=== PATIENT | female | born 1985 | race African-American/Black ===

== ENCOUNTER 2016-09-02 08:27 | Emergency (ER) | payer MEDICAID ==
[~2016-09-02] VITALS: Ht 165.1 cm; Wt 51.0 kg
[~2016-09-02 08:27] MED LIST: CONTOUR NEXT EZ BLEZ XX; GLUCOMETER XX; GLUCOMTESTSTRIPS XX; LEVEMIR SC; NOVOLOGP2 SQ; NYST500KS SS; Z.0.INSULINSYR XX
[2016-09-02 08:28] VITALS: BP 140/82; PULSE 98; RESP 20; TEMP 98.6; O2SAT 98
--- NOTE | 2016-09-02 08:53 | PD ---
HPI . Shaky and jittery feeling intermittently Chief Complaint: Diabetic Time Seen by Provider: 08:53 Travel History International Travel<30 days: No Contact w/Intl Traveler<30days: No Traveled to known affect area: No History of Present Illness HPI 30-year-old female with history of type 1 diabetes here with complaints of feeling shaky and jittery occasionally. Patient tells me that yesterday she had a shaky and jittery feeling. Unfortunately she does not have a glucometer and she tells me that she was unable to check her blood sugar. She does take insulin daily. She recently missed a primary care follow-up and says that she did not have a ride. She is in the process of looking for someone a little bit closer to home. Today she denies any fever, chills, shaking, lightheadedness or abnormal sensation. PFSH Past Medical History Autoimmune Disease: No Blood Disorders: No Cardiovascular Problems: Yes ("RAPID HEART RATE") Diabetes: Yes Diminished Hearing: No Endocrine: No Genitourinary: No Immune Disorder: No Musculoskeletal: No Neurologic: No Reproductive: No Respiratory: No ?: Not LMP: LAST MONTH : 5 Para: 4 Miscarriage: 1 : 0 Tubal Ligation: Yes Social History Alcohol Use: No Tobacco Use: No Substance Use: No Allergies-Medications (Allergen,Severity, Reaction): Coded Allergies: No Known Allergies (Verified , 09/02/16) Reported Meds & Prescriptions Reported Meds & Active Scripts Active Novolog (Insulin Aspart) 100 Units/ML Inj 30 Units SQ AM Levemir (Insulin Detemir) Inj 10 Units SC AM Contour Next EZ Blood Glucose Meter (Device) Device 1 Unit XX DIRECTED Insulin Syringes 1 ml Box 100 (Syringes Insulin 1 ml Box 100) Box 1 Box XX Glucometer Test Strips (Glucomteststrips) Box 1 Box XX Glucometer Kit 1 Kit XX Mycostatin 500,000 Unit/5 Ml Udc (Nystatin) 5 Ml Susp 5 Ml SS QID 12 Days Reported Novolog (Insulin Aspart) 100 Units/ML Inj 30 Units SQ HS Review of Systems General / Constitutional: No: Fever Eyes: No: Visual changes HENT: No: Headaches Cardiovascular: No: Chest Pain or Discomfort Respiratory: No: Shortness of Breath Gastrointestinal: No: Abdominal Pain Genitourinary: No: Dysuria Musculoskeletal: No: Pain Skin: No Rash Neurologic: No: Weakness Psychiatric: No: Depression Endocrine: No: Polydipsia Hematologic/Lymphatic: No: Easy Bruising Physical Exam Narrative GENERAL: AAO x 3, no acute distress, Well-nourished, well-developed patient. SKIN: Warm and dry. No visible rashes or bruising. HEAD: Normocephalic and atraumatic. EYES: No scleral icterus. No injection or drainage. EOM intact, PERRLA ENT: No nasal drainage noted. Mucous membranes pink. Airway patent. NECK: Supple, trachea midline. No JVD. CARDIOVASCULAR: Regular rate and rhythm without murmurs, gallops, or rubs. RESPIRATORY: Breath sounds equal bilaterally. No accessory muscle use. No rhonchi or rales. GASTROINTESTINAL: Abdomen soft, non-tender, nondistended. EXTREMITIES: No cyanosis or edema. BACK: Nontender without obvious deformity. No CVA tenderness. NEURO: CN II through XII grossly intact PSYCH: AAO x 3, normal affect. Data Data Last Documented VS Vital Signs Date Time Temp Pulse Resp B/P Pulse Ox O2 Delivery O2 Flow Rate FiO2 09/02/16 08:28 98.6 98 20 140/82 98 MDM Medical Decision Making Medical Screen Exam Complete: Yes Emergency Medical Condition: Yes Medical Record Reviewed: Yes Differential Diagnosis diabetes, anxiety, dehydration Narrative Course 30-year-old female here with complaints of shaking and jittery feeling yesterday. Today she does not have the same feeling. I've done a complete head to toe examination and do not find any explanation as to why she felt this way. It's more than likely that she may have had a period of hypoglycemia. Her blood sugar today is 99. She does take insulin daily. I've advised her that she will need to follow-up with her primary care provider for insulin adjustment and closer med monitoring. Patient verbalized understanding of instructions, questions were answered, and thanked me for their care. I advised them if their condition worsens, please return to the nearest emergency room for further care. Diagnosis Primary Impression: Diabetes type I Qualified Code: E10.9 - Type 1 diabetes mellitus without complication Patient Instructions: General Instructions Additional Instructions: Please follow-up with your primary care provider. Disposition: 01 DISCHARGE HOME Condition: Stable Naima Jacobs September 02, 2016 08:53
== END 2016-09-02 09:22 | disposition home or self-care (01) ==
LOC: NEPK 08:27
DX: E10.9 Type 1 diabetes mellitus without complications (principal); Z79.4 Long term (current) use of insulin
CPT/HCPCS: 99282

== ENCOUNTER 2016-12-02 08:51 | Inpatient (IN) | payer MEDICAID ==
[~2016-12-02] VITALS: Ht 165.1 cm; Wt 42.3 kg
[2016-12-02] VITALS (11 sets, daily range): BP systolic 105–184; BP diastolic 69–81; PULSE 68–105; RESP 16–18; TEMP 97.3–98.2; O2SAT 97–100
[2016-12-02] MEDS ORDERED: LEVEMIR SQ (09:35)
[2016-12-02] MEDS ORDERED: NOVORP2 SQ (09:35)
[2016-12-02] MEDS ORDERED: SODIUM CHLOR 0.9% 1000 ML INJ 1,000 ML IV ONE (09:45)
[2016-12-02] MEDS ORDERED: ONDANSETRON HCL 4 MG/2 ML VIAL IV PUSH ONE (09:45)
--- NOTE | 2016-12-02 09:47 | PD ---
HPI Chief Complaint: Diabetic Time Seen by Provider: 09:37 Travel History International Travel<30 days: No Contact w/Intl Traveler<30days: No Traveled to known affect area: No History of Present Illness HPI 30-year-old female complains of mild headache, shortness of breath, abdominal pain, nausea vomiting, dizziness. Patient states the symptoms started several days ago. Patient has history of diabetes and was on Levemir and Novolin R. Patient states that she ran out of Levemir several months ago and Novolin R a week ago. Patient denies any coughing congestion fever chills. Patient denies any dysuria or frequency. Patient denies any vaginal discharge or bleeding. PFSH Past Medical History Autoimmune Disease: No Blood Disorders: No Cardiovascular Problems: Yes ("RAPID HEART RATE") Diabetes: Yes Patient Takes Glucophage: No Diminished Hearing: No Endocrine: No Genitourinary: No Immune Disorder: No Musculoskeletal: No Neurologic: No Reproductive: No Respiratory: No Immunizations Current: No Tetanus Vaccination: < 5 Years Influenza Vaccination: No ?: Not LMP: last month : 5 Para: 4 Miscarriage: 1 : 0 Tubal Ligation: Yes Past Surgical History Other Surgery: No Social History Alcohol Use: No Tobacco Use: No Substance Use: No Allergies-Medications (Allergen,Severity, Reaction): Coded Allergies: No Known Allergies (Verified , 09/02/16) Reported Meds & Prescriptions Reported Meds & Active Scripts Active Reported Levemir Inj (Insulin Detemir) 1,000 unit/ 10 ML Vial 10 Units SQ HS Do not mix with any other Insulin. Novolin R Inj (Insulin Human Regular) 1,000 Unit/10 Ml Vial 10 Units SQ TIDAC Review of Systems General / Constitutional: No: Fever Eyes: No: Visual changes HENT: Positive: Headaches Cardiovascular: No: Chest Pain or Discomfort Respiratory: No: Shortness of Breath Gastrointestinal: Positive: Nausea, Vomiting, Abdominal Pain Genitourinary: No: Dysuria Musculoskeletal: No: Pain Skin: No Rash Neurologic: No: Weakness Psychiatric: No: Depression Endocrine: No: Polydipsia Hematologic/Lymphatic: No: Easy Bruising Physical Exam Narrative GENERAL: Well-nourished, well-developed patient. SKIN: Focused skin assessment warm/dry. HEAD: Normocephalic. EYES: No scleral icterus. No injection or drainage. NECK: Supple, trachea midline. No JVD or lymphadenopathy. CARDIOVASCULAR: Regular rate and rhythm without murmurs, gallops, or rubs. RESPIRATORY: Breath sounds equal bilaterally. No accessory muscle use. GASTROINTESTINAL: Abdomen soft, nondistended. Mild tenderness on palpation epigastric area. No rebound tenderness. No mass. MUSCULOSKELETAL: No cyanosis, or edema. BACK: Nontender without obvious deformity. No CVA tenderness. Neurologic exam normal. Data Data Last Documented VS Vital Signs Date Time Temp Pulse Resp B/P Pulse Ox O2 Delivery O2 Flow Rate FiO2 12/02/16 10:30 78 16 116/79 100 Room Air 12/02/16 09:28 98.2 Orders Complete Blood Count With Diff (12/02/16 09:41) Comprehensive Metabolic Panel (12/02/16 09:41) Urinalysis - C+S If Indicated (12/02/16 09:41) Beta Hydroxybutyrate (Acetone) (12/02/16 09:41) Iv Access Insert/Monitor (12/02/16 09:41) Ecg Monitoring (12/02/16 09:41) Oximetry (12/02/16 09:41) Sodium Chlor 0.9% 1000 Ml Inj (Ns 1000 M (12/02/16 09:45) Ondansetron Inj (Zofran Inj) (12/02/16 09:45) Lipase (12/02/16 09:41) Labs Laboratory Tests Test 12/02/16 12/02/16 09:25 09:30 Urine Color LIGHT-YELLOW Urine Turbidity CLEAR Urine pH 5.0 Urine Specific [place] 1.032 Urine Protein NEG mg/dL Urine Glucose (UA) 1000 mg/dL Urine Ketones 150 mg/dL Urine Occult Blood NEG Urine Nitrite NEG Urine Bilirubin NEG Urine Urobilinogen LESS THAN 2.0 MG/DL Urine Leukocyte Esterase MOD Urine RBC 2 /hpf Urine WBC 4 /hpf Urine Squamous Epithelial 1 /hpf Cells Microscopic Urinalysis Comment CULT NOT INDICATED White Blood Count 8.7 TH/MM3 Red Blood Count 4.70 MIL/MM3 Hemoglobin 15.2 GM/DL Hematocrit 47.0 % Mean Corpuscular Volume 100.0 FL Mean Corpuscular Hemoglobin 32.4 PG Mean Corpuscular Hemoglobin 32.4 % Concent Red Cell Distribution Width 13.5 % Platelet Count 370 TH/MM3 Mean Platelet Volume 8.8 FL Neutrophils (%) (Auto) 74.3 % Lymphocytes (%) (Auto) 18.4 % Monocytes (%) (Auto) 6.2 % Eosinophils (%) (Auto) 0.3 % Basophils (%) (Auto) 0.8 % Neutrophils # (Auto) 6.5 TH/MM3 Lymphocytes # (Auto) 1.6 TH/MM3 Monocytes # (Auto) 0.5 TH/MM3 Eosinophils # (Auto) 0.0 TH/MM3 Basophils # (Auto) 0.1 TH/MM3 CBC Comment DIFF FINAL Differential Comment Sodium Level 121 MEQ/L Potassium Level 3.7 MEQ/L Chloride Level 88 MEQ/L Carbon Dioxide Level 17.6 MEQ/L Anion Gap 15 MEQ/L Blood Urea Nitrogen 9 MG/DL Creatinine 1.34 MG/DL Estimat Glomerular Filtration 55 ML/MIN Rate Random Glucose 696 MG/DL Calcium Level 10.1 MG/DL Total Bilirubin 0.4 MG/DL Aspartate Amino Transf 16 U/L (AST/SGOT) Alanine Aminotransferase 23 U/L (ALT/SGPT) Alkaline Phosphatase 207 U/L Total Protein 9.8 GM/DL Albumin 4.5 GM/DL Lipase 93 U/L B-Hydroxybutyrate 5.35 MMOL/L MDM Medical Decision Making Medical Screen Exam Complete: Yes Emergency Medical Condition: Yes Interpretation(s) 11:49 AM. CBC within normal limit. Sodium 121. Bicarbonate 17.6. Creatinine 1.34. Glucose 696. Beta hydroxy butyrate 5.35. UA is positive for glucose and ketone. Differential Diagnosis Differential diagnosis including hyperglycemia, DKA, electrolyte imbalance, dehydration, gastritis, PUD, pancreatitis, cholecystitis, colitis, UTI, pyelonephritis. Narrative Course 30-year-old female with multiple complaints including headache, shortness of breath, abdominal pain, nausea vomiting. Patient has history diabetes and out of her insulin recently. Normal saline solution 1 L IV bolus. Zofran 4 mg IV. DKA protocol started. Diagnosis Primary Impression: DKA (diabetic ketoacidoses) Qualified Code: E10.10 - Diabetic ketoacidosis without coma associated with type 1 diabetes mellitus Admitting Information Admitting Physician Requests: Admit Grayson Cuadra MD Dec 02, 2016 09:47
[2016-12-02 10:12] LABS: AUTOMATED NEUTROPHIL # 6.5 TH/MM3 (1.8-7.7); BASOPHIL # 0.1 TH/MM3 (0-0.2); BASOPHIL % 0.8 % (0.0-2.0); EOSINOPHIL % 0.3 % (0.0-4.0); HEMO FLAGS DIFF FINAL; LYMPH % 18.4 % (9.0-44.0); LYMPHOCYTE # 1.6 TH/MM3 (1.0-4.8); MEAN CORPUSCULAR HEMOGLOBIN 32.4 PG (27.0-34.0); MEAN CORPUSCULAR HGB CONC 32.4 % (32.0-36.0); MONO % 6.2 % (0.0-8.0); NEUT % 74.3 % (16.0-70.0); PLATELET COUNT 370 TH/MM3 (150-450); RED CELL DISTRIBUTION WIDTH 13.5 % (11.6-17.2); WHITE BLOOD COUNT 8.7 TH/MM3 (4.0-11.0)
[2016-12-02 10:14] LABS: BLOOD, URINE NEG (NEG); COMMENT (UR) CULT NOT INDICATED; CULTURE IF INDICATED CULT NOT INDICATED; GLUCOSE,URINE 1000 mg/dL (NEG); KETONE, URINE 150 mg/dL (NEG); NITRITE,URINE NEG (NEG); SQUAMOUS EPITHELIAL CELL URINE 1 /hpf (0-5); URINE COLOR LIGHT-YELLOW (YELLW/STRAW)
[2016-12-02 10:33] LABS: ALKALINE PHOSPHATASE 207 U/L (45-117); ALT (GPT) 23 U/L (10-53); ANION GAP 15 MEQ/L (5-15); AST (GOT) 16 U/L (15-37); BICARBONATE 17.6 MEQ/L (21.0-32.0); BLOOD UREA NITROGEN 9 MG/DL (7-18); CHLORIDE 88 MEQ/L (98-107); GLOMERULAR FILTRATION RATE 55 ML/MIN (>89); POTASSIUM 3.7 MEQ/L (3.5-5.1); TOTAL BILIRUBIN ADULT 0.4 MG/DL (0.2-1.0)
[2016-12-02 10:36] LABS: BETA-HYDROXYBUTYRATE 5.35 MMOL/L (0.00-0.39)
[2016-12-02 10:41] LABS: SODIUM (NA) 121 MEQ/L (136-145)
[2016-12-02] MEDS ORDERED: SODIUM CHLOR 0.9% 1000 ML INJ 1,000 ML IV SCH (11:51)
[2016-12-02] MEDS ORDERED: DEXT 5%-NACL 0.9% 1000 ML INJ 1,000 ML IV SCH (11:51)
[2016-12-02] MEDS ORDERED: INSULIN HUMAN REGULAR 1,000 UNITS/10 ML VIAL IV PUSH ONE ×2 (12:00→23:45)
[2016-12-02] MEDS ORDERED: POTASSIUM CHLOR 20 MEQ PREMIX 100 ML IV PRN ×6 (12:00)
[2016-12-02] MEDS ORDERED: SODIUM BICARBONATE 8.4% SOLN 50 MEQ/50 ML VIAL IV PRN ×2 (12:00)
[2016-12-02] MEDS ORDERED: SODIUM PHOSPHATE INJ 15 MMOL in SODIUM CHLORIDE 0.9% INJ 100 ML IV PRN (12:00)
[2016-12-02] MEDS ORDERED: INSULIN REGULAR (IV INFUSION) 100 UNITS in SODIUM CHLORIDE 0.9% INJ 99 ML IV SCH (12:00)
[2016-12-02] MEDS ORDERED: POTASSIUM CHLOR 40 MEQ PREMIX 100 ML IV PRN ×2 (12:00)
[2016-12-02] MEDS ORDERED: NALOXONE HCL 0.4 MG/ML AMP IV PRN (12:45)
[2016-12-02] MEDS ORDERED: BISACODYL 10 MG SUPP RECTAL PRN (12:45)
[2016-12-02] MEDS ORDERED: MAGNESIUM HYDROXIDE SUSP 30 ML CUP PO PRN (12:45)
[2016-12-02] MEDS ORDERED: DEXTROSE 50% IN WATER 50 ML VIAL(D50) IV PRN (12:45)
[2016-12-02] MEDS ORDERED: ONDANSETRON HCL 4 MG/2 ML VIAL IVP PRN (12:45)
[2016-12-02] MEDS ORDERED: GLUCAGON 1 MG/ML VIAL OTHER PRN (12:45)
[2016-12-02] MEDS ORDERED: SENNOSIDES 8.6 MG TAB PO PRN (12:45)
[2016-12-02] MEDS ORDERED: SODIUM CHLORIDE 0.9% FLUSH 10 ML FLUSH IV FLUSH PRN (12:45)
[2016-12-02] MEDS ORDERED: LACTULOSE SYRUP 20 GM/30 ML CUP PO PRN (12:45)
[2016-12-02] MEDS ORDERED: ACETAMINOPHEN 325 MG TAB PO PRN (12:45)
--- NOTE | 2016-12-02 15:15 | HHI.HP ---
[facility] No Primary Care Physician Admission Diagnosis diabetic ketoacidosis Diagnoses: Chief Complaint: not feeling well Travel History International Travel<30 Days: No Contact w/Intl Traveler <30 Da: No Traveled to Known Affected Are: No History of Present Illness This is a 30-year-old female with history of type 1 diabetes who presented with "not feeling well." Patient stated that she came to ED because she did not feel well. She stated that she had mild abdominal pain earlier but that resolved. She also had episode of emesis described as clear that resolved. Patient also said that she had a headache. She stated that she knew it was her diabetes as she came into the hospital. Patient does have good urine output. She stated that she changed insurance over a month ago and she cannot find a provider that will take [employer]. She stated that she wants to keep her current provider but he does not take that type of insurance. She stated that for the past months she has not been taking her insulin. Prior she was on Novolin 70/30 40-50 at night and NovoLog 10 units before meals. She also stated that she feels dry/dehydrated. All other review symptoms reviewed and are negative. Past Family Social History Past Medical History Type 1 diabetes Noncompliance Past Surgical History Tubal ligation Reported Medications Currently patient is not taking any medication. Allergies: Coded Allergies: No Known Allergies (Verified , 09/02/16) Active Ordered Medications Current Medications Sodium Chloride (NS 1000 ml Inj) 1,000 ml @ 999 mls/hr BOLUS ONCE IV Last administered on 12/02/16 10:33; Start 12/02/16 at 09:45; Stop 12/02/16 at 10:45 ; Status DC Ondansetron HCl 4 mg 4 mg ONCE ONCE IV PUSH Last administered on 12/02/16 10: 34; Start 12/02/16 at 09:45; Stop 12/02/16 at 09:46; Status DC Sodium Chloride 1,000 ml @ 250 mls/hr Q4H IV Last administered on 12/02/16 11 :58; Start 12/02/16 at 11:51; Stop 12/02/16 at 13:57; Status DC Dextrose/Sodium Chloride (D5W-NS 1000 ml Inj) 1,000 ml @ 200 mls/hr Q5H IV Last administered on 12/02/16 13:48; Start 12/02/16 at 11:51; Stop 12/02/16 at 13:52; Status DC Insulin Human Regular 5 units 5 units BOLUS ONCE IV PUSH Last administered on 12/02/16 12:32; Start 12/02/16 at 12:00; Stop 12/02/16 at 12:01; Status DC Insulin Human Regular 100 units/ Sodium Chloride 100 ml @ 0 mls/hr TITRATE IV Last administered on 12/02/16 13:40; Start 12/02/16 at 12:00; Stop 12/02/16 at 13:54; Status DC Potassium Chloride 100 ml @ 100 mls/hr Q1H PRN IV SEE LABEL COMMENTS; Start at 12:00 Potassium Chloride 100 ml @ 50 mls/hr Q2H PRN IV SEE LABEL COMMENTS; Start at 12:00 Potassium Chloride 100 ml @ 100 mls/hr Q1H PRN IV SEE LABEL COMMENTS; Start at 12:00 Potassium Chloride 100 ml @ 100 mls/hr Q1H PRN IV SEE LABEL COMMENTS; Start at 12:00 Potassium Chloride 100 ml @ 50 mls/hr Q2H PRN IV SEE LABEL COMMENTS; Start at 12:00 Potassium Chloride 100 ml @ 50 mls/hr Q2H PRN IV SEE LABEL COMMENTS; Start at 12:00 Potassium Chloride 100 ml @ 50 mls/hr Q2H PRN IV SEE LABEL COMMENTS Last administered on 12/02/16 12:17; Start 12/02/16 at 12:00 Potassium Chloride (KCl 20 Meq Premix Inj) 100 ml @ 50 mls/hr Q2H PRN IV SEE LABEL COMMENTS; Start 12/02/16 at 12:00 Sodium Bicarbonate (Sodium Bicarbonate 8.4% Inj) 100 meq UNSCH PRN IV SEE LABEL COMMENTS; Start 12/02/16 at 12:00 Sodium Bicarbonate 50 meq 50 meq UNSCH PRN IV SEE LABEL COMMENTS; Start at 12:00 Sodium Phosphate 15 mmol/Sodium Chloride 105 ml @ 25 mls/hr UNSCH PRN IV SEE LABEL COMMENTS; Start 12/02/16 at 12:00 Sodium Chloride (NS 1000 ml Inj) 1,000 ml @ 150 mls/hr Q6H40M IV ; Start at 12:31 Sodium Chloride (NS Flush) 2 ml UNSCH PRN IV FLUSH FLUSH AFTER USING IV ACCESS ; Start 12/02/16 at 12:45 Sodium Chloride (NS Flush) 2 ml BID IV FLUSH ; Start 12/02/16 at 21:00 Acetaminophen (Tylenol) 650 mg Q4H PRN PO TEMP > 100.4; Start 12/02/16 at 12:45 Ondansetron HCl (Zofran Inj) 4 mg Q6H PRN IVP NAUSEA OR VOMITING; Start at 12:45 Naloxone HCl (Narcan Inj) 0.4 mg UNSCH PRN IV SEE LABEL COMMENTS; Start at 12:45 Senna/Docusate Sodium (Tiffany-Colace) 1 tab BID PO ; Start 12/02/16 at 21:00 Magnesium Hydroxide (Milk Of Magnesia Liq) 30 ml Q12H PRN PO MILD - MODERATE CONSTIPATION; Start 12/02/16 at 12:45 Sennosides (Senokot) 17.2 mg Q12H PRN PO MODERATE - SEVERE CONSTIPATION; Start 12/02/16 at 12:45 Bisacodyl (Dulcolax Supp) 10 mg DAILY PRN RECTAL SEVERE CONSITIPATION; Start at 12:45 Lactulose (Lactulose Liq) 30 ml DAILY PRN PO SEVERE CONSITIPATION; Start at 12:45 Insulin Human Regular (NovoLIN R INJ) 10 units TIDAC SQ ; Start 12/02/16 at 17: 00 Insulin Detemir (Levemir Inj) 15 units BID SQ ; Start 12/02/16 at 14:00 Dextrose (D50w (Vial) Inj) 50 ml UNSCH PRN IV HYPOGLYCEMIA-SEE COMMENTS; Start 12/02/16 at 12:45 Glucagon (Glucagon Inj) 1 mg UNSCH PRN OTHER HYPOGLYCEMIA-SEE COMMENTS; Start 12/02/16 at 12:45 Insulin Aspart (NovoLOG SUPPLEMENTAL SCALE) 1 ACHS SLIDING SCALE SQ ; Start at 16:00 Family History Father has history of diabetes. Social History Denies any alcohol, tobacco, or illicit drug use. Physical Exam Vital Signs Vital Signs Date Time Temp Pulse Resp B/P Pulse Ox O2 Delivery O2 Flow Rate FiO2 12/02/16 14:30 84 18 123/77 100 Room Air 12/02/16 13:30 82 18 123/76 100 Room Air 12/02/16 12:30 86 16 139/81 100 Room Air 12/02/16 11:30 76 18 105/70 100 Room Air 12/02/16 10:30 78 16 116/79 100 Room Air 12/02/16 09:30 Room Air 12/02/16 09:28 98.2 68 16 108/69 100 12/02/16 08:52 97.5 105 17 184/79 98 Physical Exam GENERAL: This very thin female in no acute distress. SKIN: No rashes, ecchymoses or lesions. Cool and dry. HEAD: Atraumatic. Normocephalic. No temporal or scalp tenderness. EYES: Pupils equal round and reactive. Extraocular motions intact. No scleral icterus. No injection or drainage. ENT: Nose without bleeding, purulent drainage or septal hematoma. Throat without erythema, tonsillar hypertrophy or exudate. Uvula midline. Airway patent. Lips are dry. Mucous membranes also dry. NECK: Trachea midline. No JVD or lymphadenopathy. Supple, nontender, no meningeal signs. CARDIOVASCULAR: Regular rate and rhythm without murmurs, gallops, or rubs. RESPIRATORY: Clear to auscultation. Breath sounds equal bilaterally. No wheezes , rales, or rhonchi. GASTROINTESTINAL: Abdomen soft, non-tender, nondistended. No hepato-splenomegaly , or palpable masses. No guarding. MUSCULOSKELETAL: Extremities without clubbing, cyanosis, or edema. No joint tenderness, effusion, or edema noted. No calf tenderness. Negative Homans sign bilaterally. NEUROLOGICAL: Awake and alert. Cranial nerves II through XII intact. Motor and sensory grossly within normal limits. Five out of 5 muscle strength in all muscle groups. Normal speech. Laboratory Laboratory Tests Test 12/02/16 12/02/16 09:25 09:30 Urine Color LIGHT-YELLOW Urine Turbidity CLEAR Urine pH 5.0 Urine Specific [place] 1.032 Urine Protein NEG Urine Glucose (UA) 1000 Urine Ketones 150 Urine Occult Blood NEG Urine Nitrite NEG Urine Bilirubin NEG Urine Urobilinogen LESS THAN 2.0 Urine Leukocyte Esterase MOD Urine RBC 2 Urine WBC 4 Urine Squamous Epithelial 1 Cells Microscopic Urinalysis Comment CULT NOT INDICATED White Blood Count 8.7 Red Blood Count 4.70 Hemoglobin 15.2 Hematocrit 47.0 Mean Corpuscular Volume 100.0 Mean Corpuscular Hemoglobin 32.4 Mean Corpuscular Hemoglobin 32.4 Concent Red Cell Distribution Width 13.5 Platelet Count 370 Mean Platelet Volume 8.8 Neutrophils (%) (Auto) 74.3 Lymphocytes (%) (Auto) 18.4 Monocytes (%) (Auto) 6.2 Eosinophils (%) (Auto) 0.3 Basophils (%) (Auto) 0.8 Neutrophils # (Auto) 6.5 Lymphocytes # (Auto) 1.6 Monocytes # (Auto) 0.5 Eosinophils # (Auto) 0.0 Basophils # (Auto) 0.1 CBC Comment DIFF FINAL Differential Comment Sodium Level 121 Potassium Level 3.7 Chloride Level 88 Carbon Dioxide Level 17.6 Anion Gap 15 Blood Urea Nitrogen 9 Creatinine 1.34 Estimat Glomerular Filtration 55 Rate Random Glucose 696 Calcium Level 10.1 Total Bilirubin 0.4 Aspartate Amino Transf 16 (AST/SGOT) Alanine Aminotransferase 23 (ALT/SGPT) Alkaline Phosphatase 207 Total Protein 9.8 Albumin 4.5 Lipase 93 B-Hydroxybutyrate 5.35 Result Diagram: 12/02/1630 12/02/16929 Assessment and Plan Assessment and Plan 30-year-old female with type 1 diabetes and noncompliant who has not been taking her insulin for the past month who presented with Mild DKA/uncontrolled diabetes -Symptoms are only significant for dehydration otherwise they're pretty mild. Labs reviewed no anion gap. Beta hydroxybutyrate elevated. Bicarbonate 17.5. -Since DKA is mild and she is mostly dehydrated with treat with subcutaneous insulin. We'll start with Levemir 15 units subcutaneous twice a day. Start patient on a high dose of insulin sliding scale. Will monitor labs and adjust accordingly. Blood sugars in the 600s so we'll initially put patient on normal saline at 150 cc/hr. Encourage fluid intake. Pseudohyponatremia -Corrected sodium level is 141. -Continue to monitor. -Neuro checks. Renal sufficiency -Creatinine is elevated from baseline. Due to his dehydration. -Strict ins and outs. Monitor creatinine. Continue with IV fluids. DVT prophylaxis -SCDs. Will consult case management to help patient establish with another primary care physician since patient has no PCP to prescribe her insulin. Code Status Full code Discussed Condition With Patient and her nurse Physician Certification 2 Midnight Certification Type: Admission for Inpatient Services Order for Inpatient Services The services are ordered in accordance with Medicare regulations or non- Medicare payer requirements, as applicable. In the case of services not specified as inpatient-only, they are appropriately provided as inpatient services in accordance with the 2-midnight benchmark. Estimated LOS (days): 2 2 days is the estimated time the patient will need to remain in the hospital, assuming treatment plan goals are met and no additional complications. Post-Hospital Plan: [place] Ene Arce MD Dec 02, 2016 15:15
[2016-12-02] MEDS: INSULIN ASPART SUPPLEMENTAL SCALE SQ SCH ×2 (16:00→20:51)
[2016-12-02] MEDS: SODIUM CHLOR 0.9% 1000 ML INJ 1,000 ML IV SCH ×2 (16:42→19:11)
[2016-12-02] MEDS: INSULIN HUMAN REGULAR 1,000 UNITS/10 ML VIAL SQ SCH (16:42)
[2016-12-02] MEDS: INSULIN DETEMIR 100 UNITS/ML VIAL SQ SCH ×2 (16:46→20:48)
[2016-12-02] MEDS: DOCUSATE SODIUM 50 MG/SENNA 8.6 MG TAB PO SCH (20:48)
[2016-12-02] MEDS: SODIUM CHLORIDE 0.9% FLUSH 10 ML FLUSH IV FLUSH SCH (20:48)
[2016-12-02 21:44] LABS: BICARBONATE 20.5 MEQ/L (21.0-32.0); MAGNESIUM 1.9 MG/DL (1.5-2.5); POTASSIUM 4.4 MEQ/L (3.5-5.1)
[2016-12-03] VITALS (8 sets, daily range): BP systolic 101–114; BP diastolic 62–70; PULSE 74–94; RESP 16–18; TEMP 97.5–99; O2SAT 99–100
[2016-12-03] MEDS: SODIUM CHLOR 0.9% 1000 ML INJ 1,000 ML IV SCH ×5 (01:51→21:54)
[2016-12-03 04:53] LABS: ANION GAP 9 MEQ/L (5-15); BETA-HYDROXYBUTYRATE 1.15 MMOL/L (0.00-0.39); BICARBONATE 18.9 MEQ/L (21.0-32.0); BLOOD UREA NITROGEN 10 MG/DL (7-18); CHLORIDE 109 MEQ/L (98-107); GLOMERULAR FILTRATION RATE 162 ML/MIN (>89); MAGNESIUM 1.8 MG/DL (1.5-2.5); POTASSIUM 3.7 MEQ/L (3.5-5.1); SODIUM (NA) 137 MEQ/L (136-145)
[2016-12-03] MEDS: INSULIN HUMAN REGULAR 1,000 UNITS/10 ML VIAL SQ SCH ×2 (08:00→12:00)
[2016-12-03] MEDS: SODIUM CHLORIDE 0.9% FLUSH 10 ML FLUSH IV FLUSH SCH ×2 (09:00→21:51)
[2016-12-03] MEDS: DOCUSATE SODIUM 50 MG/SENNA 8.6 MG TAB PO SCH ×2 (09:00→21:50)
[2016-12-03] MEDS: INSULIN ASPART SUPPLEMENTAL SCALE SQ SCH ×3 (11:00→21:53)
--- NOTE | 2016-12-03 11:06 | HHI.PR ---
Subjective Remarks Follow-up for mild DKA Patient denies any nausea, vomiting, or abdominal pain. She stated that she tolerate oral intake. Patient said that she has been eating very well. She has no other complaints. Blood sugars this morning went to lower 50s. Objective Vitals Vital Signs Date Time Temp Pulse Resp B/P Pulse Ox O2 Delivery O2 Flow Rate FiO2 12/03/16 07:51 97.8 76 18 107/69 100 12/03/16 04:30 97.8 74 17 112/69 100 12/03/16 00:40 98.6 88 16 114/66 99 12/02/16 20:35 97.7 78 16 111/74 97 12/02/16 20:30 81 12/02/16 19:07 84 12/02/16 17:51 97.3 92 18 115/69 100 12/02/16 17:40 Room Air 12/02/16 17:30 91 18 100 12/02/16 14:30 84 18 123/77 100 Room Air 12/02/16 13:30 82 18 123/76 100 Room Air 12/02/16 12:30 86 16 139/81 100 Room Air 12/02/16 11:30 76 18 105/70 100 Room Air I/O 12/02/16 12/02/16 12/02/16 12/03/16 12/03/16 12/03/16 06:59 14:59 22:59 06:59 14:59 22:59 Intake Total 1058 ml 1277 ml Balance 1058 ml 1277 ml Intake Oral 720 ml 240 ml IV Total 338 ml 1037 ml # Voids 1 2 2 # Bowel Movements 0 0 Result Diagram: 12/02/16 0930 12/03/16 0415 Objective Remarks GENERAL: Very thin female in no acute distress CARDIOVASCULAR: Regular rate and rhythm without murmurs, gallops, or rubs. RESPIRATORY: Breath sounds equal bilaterally. No accessory muscle use. GASTROINTESTINAL: Abdomen soft, non-tender, nondistended. MUSCULOSKELETAL: No cyanosis, or edema. BACK: Nontender without obvious deformity. No CVA tenderness. Medications and IVs Current Medications Sodium Chloride (NS 1000 ml Inj) 1,000 ml @ 999 mls/hr BOLUS ONCE IV Last administered on 12/02/16t 10:33; Start 12/02/16 at 09:45; Stop 12/02/16 at 10:45 ; Status DC Ondansetron HCl 4 mg 4 mg ONCE ONCE IV PUSH Last administered on 12/02/16 10: 34; Start 12/02/16 at 09:45; Stop 12/02/16 at 09:46; Status DC Sodium Chloride 1,000 ml @ 250 mls/hr Q4H IV Last administered on 12/02/16 11 :58; Start 12/02/16 at 11:51; Stop 12/02/16 at 13:57; Status DC Dextrose/Sodium Chloride (D5W-NS 1000 ml Inj) 1,000 ml @ 200 mls/hr Q5H IV Last administered on 12/02/16 13:48; Start 12/02/16 at 11:51; Stop 12/02/16 at 13:52; Status DC Insulin Human Regular 5 units 5 units BOLUS ONCE IV PUSH Last administered on 12/02/16 12:32; Start 12/02/16 at 12:00; Stop 12/02/16 at 12:01; Status DC Insulin Human Regular 100 units/ Sodium Chloride 100 ml @ 0 mls/hr TITRATE IV Last administered on 12/02/16 13:40; Start 12/02/16 at 12:00; Stop 12/02/16 at 13:54; Status DC Potassium Chloride 100 ml @ 100 mls/hr Q1H PRN IV SEE LABEL COMMENTS; Start at 12:00 Potassium Chloride 100 ml @ 50 mls/hr Q2H PRN IV SEE LABEL COMMENTS; Start at 12:00 Potassium Chloride 100 ml @ 100 mls/hr Q1H PRN IV SEE LABEL COMMENTS; Start at 12:00 Potassium Chloride 100 ml @ 100 mls/hr Q1H PRN IV SEE LABEL COMMENTS; Start at 12:00 Potassium Chloride 100 ml @ 50 mls/hr Q2H PRN IV SEE LABEL COMMENTS; Start at 12:00 Potassium Chloride 100 ml @ 50 mls/hr Q2H PRN IV SEE LABEL COMMENTS; Start at 12:00 Potassium Chloride 100 ml @ 50 mls/hr Q2H PRN IV SEE LABEL COMMENTS Last administered on 12/02/16 12:17; Start 12/02/16 at 12:00 Potassium Chloride (KCl 20 Meq Premix Inj) 100 ml @ 50 mls/hr Q2H PRN IV SEE LABEL COMMENTS; Start 12/02/16 at 12:00 Sodium Bicarbonate (Sodium Bicarbonate 8.4% Inj) 100 meq UNSCH PRN IV SEE LABEL COMMENTS; Start 12/02/16 at 12:00 Sodium Bicarbonate 50 meq 50 meq UNSCH PRN IV SEE LABEL COMMENTS; Start at 12:00 Sodium Phosphate 15 mmol/Sodium Chloride 105 ml @ 25 mls/hr UNSCH PRN IV SEE LABEL COMMENTS; Start 12/02/16 at 12:00 Sodium Chloride (NS 1000 ml Inj) 1,000 ml @ 150 mls/hr Q6H40M IV Last administered on 12/02/16t 16:42; Start 12/02/16 at 12:31 Sodium Chloride (NS Flush) 2 ml UNSCH PRN IV FLUSH FLUSH AFTER USING IV ACCESS ; Start 12/02/16 at 12:45 Sodium Chloride (NS Flush) 2 ml BID IV FLUSH ; Start 12/02/16 at 21:00 Acetaminophen (Tylenol) 650 mg Q4H PRN PO TEMP > 100.4; Start 12/02/16 at 12:45 Ondansetron HCl (Zofran Inj) 4 mg Q6H PRN IVP NAUSEA OR VOMITING; Start at 12:45 Naloxone HCl (Narcan Inj) 0.4 mg UNSCH PRN IV SEE LABEL COMMENTS; Start at 12:45 Senna/Docusate Sodium (Tiffany-Colace) 1 tab BID PO Last administered on t 20:48; Start 12/02/16 at 21:00 Magnesium Hydroxide (Milk Of Magnesia Liq) 30 ml Q12H PRN PO MILD - MODERATE CONSTIPATION; Start 12/02/16 at 12:45 Sennosides (Senokot) 17.2 mg Q12H PRN PO MODERATE - SEVERE CONSTIPATION; Start 12/02/16 at 12:45 Bisacodyl (Dulcolax Supp) 10 mg DAILY PRN RECTAL SEVERE CONSITIPATION; Start at 12:45 Lactulose (Lactulose Liq) 30 ml DAILY PRN PO SEVERE CONSITIPATION; Start at 12:45 Insulin Human Regular (NovoLIN R INJ) 10 units TIDAC SQ ; Start 12/02/16 at 17: 00 Insulin Detemir (Levemir Inj) 15 units BID SQ Last administered on 12/02/16 20 :48; Start 12/02/16 at 14:00; Stop 12/03/16 at 10:14; Status DC Dextrose (D50w (Vial) Inj) 50 ml UNSCH PRN IV HYPOGLYCEMIA-SEE COMMENTS; Start 12/02/16 at 12:45 Glucagon (Glucagon Inj) 1 mg UNSCH PRN OTHER HYPOGLYCEMIA-SEE COMMENTS; Start 12/02/16 at 12:45 Insulin Aspart (NovoLOG SUPPLEMENTAL SCALE) 1 ACHS SLIDING SCALE SQ Last administered on 12/02/16 20:51; Start 12/02/16 at 16:00; Stop 12/03/16 at 10:14 ; Status DC Insulin Human Regular (NovoLIN R INJ) 5 units ONCE ONCE IV PUSH Last administered on 12/02/16 23:58; Start 12/02/16 at 23:45; Stop 12/02/16 at 23:47 ; Status DC Insulin Aspart (NovoLOG SUPPLEMENTAL SCALE) 1 ACHS SLIDING SCALE SQ ; Start at 11:00; Status UNV A/P Assessment and Plan 30-year-old female with type 1 diabetes and noncompliant who has not been taking her insulin for the past month who presented with Mild DKA/uncontrolled diabetes -Symptoms are only significant for dehydration otherwise they're pretty mild. Labs reviewed no anion gap. Beta hydroxybutyrate elevated. Bicarbonate 17.5. -Follow-up labs reviewed in improving. Patient did have an episode of hypoglycemia. Will DC Levemir and decrease insulin sliding scale to medium dose. We'll monitor blood sugars and try to transition patient to Novolin 70/ 30. Pseudohyponatremia -Corrected sodium level is 141. -Continue to monitor. -Neuro checks. Renal sufficiency -Resolved. Patient back to her baseline. DVT prophylaxis -SCDs. Discharge Planning Will need to monitor another day due to hypoglycemia and make sure blood sugars are stabilized. Ene Arce MD Dec 03, 2016 11:06
[2016-12-03 12:07] LABS: HEMOGLOBIN A1a 1.3 %; HEMOGLOBIN A1b 0.9 %; HEMOGLOBIN Ao 74.5 %; HEMOGLOBIN F 2.8 %; HEMOGLOBIN LA1C 1.6 %; HEMOGLOBIN P3 5.2 %
[2016-12-03 14:12] LABS: BICARBONATE 23.2 MEQ/L (21.0-32.0); MAGNESIUM 1.9 MG/DL (1.5-2.5); POTASSIUM 3.6 MEQ/L (3.5-5.1)
[2016-12-03 20:22] LABS: BICARBONATE 23.3 MEQ/L (21.0-32.0); MAGNESIUM 1.9 MG/DL (1.5-2.5)
[2016-12-03 20:24] LABS: BETA-HYDROXYBUTYRATE 0.14 MMOL/L (0.00-0.39)
[2016-12-04 00:45] VITALS: BP 101/67; PULSE 89; RESP 16; TEMP 98.8; O2SAT 99
[2016-12-04 04:35] VITALS: BP 104/64; PULSE 85; RESP 17; TEMP 98.7; O2SAT 99
[2016-12-04] MEDS: INSULIN ASPART SUPPLEMENTAL SCALE SQ SCH ×2 (06:55→10:48)
[2016-12-04 08:00] VITALS: BP 94/63; PULSE 79; PULSE 80; RESP 19; TEMP 97.6; O2SAT 100
[2016-12-04] MEDS: DOCUSATE SODIUM 50 MG/SENNA 8.6 MG TAB PO SCH (09:44)
[2016-12-04] MEDS: SODIUM CHLORIDE 0.9% FLUSH 10 ML FLUSH IV FLUSH SCH (09:44)
[2016-12-04] MEDS: SODIUM CHLOR 0.9% 1000 ML INJ 1,000 ML IV SCH (10:48)
[2016-12-04 12:00] VITALS: BP 100/58; PULSE 84; RESP 18; TEMP 97.6; O2SAT 100
[2016-12-04] MEDS ORDERED: NOVOLOGSS SQ (12:23)
[2016-12-04] MEDS ORDERED: NOVOINJ2 SQ (12:23)
--- NOTE | 2016-12-04 12:24 | HHI.DCPOC ---
Discharge Care Plan Diagnosis: (1) DKA (diabetic ketoacidoses) (2) Diabetes type I Goals to Promote Your Health * To prevent worsening of your condition and complications * To maintain your health at the optimal level Directions to Meet Your Goals Take your medications as prescribed Follow your dietary instruction Follow activity as directed Keep your appointments as scheduled Take your immunizations and boosters as scheduled If your symptoms worsen call your PCP, if no PCP go to Urgent Care Center or Emergency Room Smoking is Dangerous to Your Health. Avoid second hand smoke Call the 24-hour hour crisis hotline for domestic abuse at Ene Arce MD Dec 04, 2016 12:24
--- NOTE | 2016-12-04 12:25 | HHI.DS ---
Discharge Summary Admission Date Dec 02, 2016 at 12:40 Discharge Date: Dec 04, 2016 Admitting Diagnosis diabetic ketoacidosis (1) DKA (diabetic ketoacidoses) ICD Code: E13.10 Diagnosis: Principal (2) Diabetes type I ICD Code: E10.9 Diagnosis: Secondary (3) Renal insufficiency ICD Code: N28.9 Diagnosis: Principal (4) Hyponatremia ICD Code: E87.1 Diagnosis: Principal (5) Noncompliance ICD Code: Z91.19 Diagnosis: Principal Procedures See hospital course. Brief History - From Admission This is a 30-year-old female with history of type 1 diabetes who presented with "not feeling well." Patient stated that she came to ED because she did not feel well. She stated that she had mild abdominal pain earlier but that resolved. She also had episode of emesis described as clear that resolved. Patient also said that she had a headache. She stated that she knew it was her diabetes as she came into the hospital. Patient does have good urine output. She stated that she changed insurance over a month ago and she cannot find a provider that will take [facility]. She stated that she wants to keep her current provider but he does not take that type of insurance. She stated that for the past months she has not been taking her insulin. Prior she was on Novolin 70/30 40-50 at night and NovoLog 10 units before meals. She also stated that she feels dry/dehydrated. All other review symptoms reviewed and are negative. CBC/BMP: 12/02/16 0930 12/03/16 1905 Significant Findings Laboratory Tests Test 12/02/16 12/02/16 12/02/16 12/03/16 09:25 09:30 20:55 04:15 Urine Glucose (UA) 1000 mg/dL (NEG) Urine Ketones 150 mg/dL (NEG) Urine Leukocyte Esterase MOD (NEG) Hematocrit 47.0 % (35.0-46.0) Neutrophils (%) (Auto) 74.3 % (16.0-70.0) Sodium Level 121 MEQ/L 129 MEQ/L (136-145) (136-145) Chloride Level 88 MEQ/L 109 MEQ/L (98-107) (98-107) Carbon Dioxide Level 17.6 MEQ/L 20.5 MEQ/L 18.9 MEQ/L (21.0-32.0) (21.0-32.0) (21.0-32.0) Creatinine 1.34 MG/DL 1.04 MG/DL (0.50-1.00) (0.50-1.00) Estimat Glomerular Filtration 55 ML/MIN (>89) 74 ML/MIN (>89) Rate Random Glucose 696 MG/DL 489 MG/DL 54 MG/DL (74-106) (74-106) (74-106) Alkaline Phosphatase 207 U/L (45-117) Total Protein 9.8 GM/DL (6.4-8.2) B-Hydroxybutyrate 5.35 MMOL/L 1.15 MMOL/L (0.00-0.39) (0.00-0.39) Phosphorus Level 2.0 MG/DL 1.9 MG/DL (2.5-4.9) (2.5-4.9) Hemoglobin A1c 13.6 % (4.3-6.0) Test 12/03/16 12/03/16 13:20 19:05 Sodium Level 133 MEQ/L 133 MEQ/L (136-145) (136-145) Random Glucose 224 MG/DL 164 MG/DL (74-106) (74-106) Phosphorus Level 1.4 MG/DL 1.7 MG/DL (2.5-4.9) (2.5-4.9) PE at Discharge GENERAL: Very thin female in no acute distress CARDIOVASCULAR: Regular rate and rhythm without murmurs, gallops, or rubs. RESPIRATORY: Breath sounds equal bilaterally. No accessory muscle use. GASTROINTESTINAL: Abdomen soft, non-tender, nondistended. MUSCULOSKELETAL: No cyanosis, or edema. BACK: Nontender without obvious deformity. No CVA tenderness. Pt update on day of discharge Follow for DKA Patient had no complaints. She stated that she has a good appetite and is tolerating oral intake. Denies any abdominal pain, nausea/ vomiting. Dealt with patient's nurse. Hospital Course 30-year-old female with type 1 diabetes and noncompliant who has not been taking her insulin for the past month who presented with Mild DKA/uncontrolled diabetes -Symptoms are only significant for dehydration otherwise they're pretty mild. Labs reviewed no anion gap. Beta hydroxybutyrate elevated. Bicarbonate 17.5. -Follow-up labs reviewed improved at the hospital course and within normalized. Her blood sugars were labile in which a few time she was hypoglycemic. -Her insulin was adjusted based on her trunk. Most likely patient is a brittle diabetic. She was put on discharge Novolin 70/30 5 units twice a day and on a low-dose insulin sliding scale. -Patient told to record her blood sugars and bring up appointment with her primary care physician for adjustment. Extensive education on insulin use and adjustment given to patient. Educated also on hypoglycemia management. Pseudohyponatremia -Corrected sodium level is 141. -Continue to monitor. -Neuro checks. Renal sufficiency -Patient was given IV fluids. -Resolved. Pt Condition on Discharge: Good Discharge Disposition: Discharge Home Discharge Time: <= 30 minutes Discharge Instructions DIET: Follow Instructions for: Diabetic Diet Activities you can perform: Regular-No Restrictions Follow up Referrals: PCP Follow-up - 1 Week New Medications: Insulin Aspart Protam-Asp 70-30 Inj (Novolog Mix 70-30 FlexPen Inj) 300 Unit/3 Ml Pen 5 UNITS SQ BID Blood Sugar Management #1 Ref 0 PEN Insulin Aspart Inj (Novolog Inj) 100 Unit/Ml Inj 1 UNIT SQ ACHS SLIDING SCALE blood sugar >150-180 give 2 units before meal blood sugar 181-200 give 3 units before meal blood sugar 201-220 give 4 units before meal blood sugar >221 give 5 units before meal elevated blood sugar #1 Ref 0 INJECTION Discontinued Medications: Insulin Detemir Inj (Levemir Inj) 1,000 unit/ 10 ML Vial 10 UNITS SQ HS Do not mix with any other Insulin. Blood Sugar Management Ref 0 VIAL Insulin Human Regular Inj (Novolin R Inj) 1,000 Unit/10 Ml Vial 10 UNITS SQ TIDAC Blood Sugar Management #10 Ref 0 ML Ene Arce MD Dec 04, 2016 12:25
== END 2016-12-04 14:30 | disposition home or self-care (01) | DRG 638 ==
LOC: NEPE 08:51 → NEDA 12:40 → N06B 17:44
PROVIDERS: ADMIT Family Medicine; ATTEND Family Medicine
DX: E10.10 Type 1 diabetes mellitus with ketoacidosis without coma (principal); E87.1 Hypo-osmolality and hyponatremia; E10.649 Type 1 diabetes mellitus with hypoglycemia without coma; E86.0 Dehydration; Z79.4 Long term (current) use of insulin; N28.9 Disorder of kidney and ureter, unspecified; Z91.14 Patient's other noncompliance with medication regimen
CPT/HCPCS: 80048; 80053; 81001; 82010; 82948; 83036; 83690; 83735; 84100; 85025; 96361; 96365; 96375; J1815; J1817; J2405; J3480; J7030; J7042

== ENCOUNTER 2017-02-27 14:25 | Inpatient (IN) | payer MEDICAID ==
[~2017-02-27] VITALS: Ht 162.6 cm; Wt 47.9 kg
[~2017-02-27 14:25] MED LIST changes: -CONTOUR NEXT EZ BLEZ XX; -GLUCOMETER XX; -GLUCOMTESTSTRIPS XX; -LEVEMIR SC; +NOVOINJ2 SQ; -NOVOLOGP2 SQ; +NOVOLOGSS SQ; -NYST500KS SS; -Z.0.INSULINSYR XX
[2017-02-27 14:30] VITALS: BP 143/95; PULSE 100; RESP 42; TEMP 98.3; O2SAT 100
[2017-02-27] MEDS ORDERED: ONDANSETRON HCL 4 MG/2 ML VIAL ONE (14:44)
[2017-02-27] MEDS ORDERED: ONDANSETRON HCL 4 MG/2 ML VIAL IV PUSH ONE (14:45)
[2017-02-27] MEDS ORDERED: SODIUM CHLORIDE 0.9% FLUSH 10 ML FLUSH IVF PRN (14:45)
[2017-02-27] MEDS ORDERED: SODIUM CHLOR 0.9% 1000 ML INJ 1,000 ML IV ONE ×4 (14:45→17:00)
[2017-02-27 15:01] LABS: BLOOD GAS VENOUS BASE EXCESS -3.4 mmol/L (-2-2); BLOOD GAS VENOUS HCO3 20 mmol/L (22-26); BLOOD GAS VENOUS O2 CONTENT 3.1 Vol % (9.0-17.0); BLOOD GAS VENOUS O2 HGB SAT 16 % (70-76); BLOOD GAS VENOUS PCO2 32 mmHg (44-48); BLOOD GAS VENOUS pH 7.42 (7.360-7.400); TEMP CORR TO 98.6
[2017-02-27] MEDS ORDERED: NOVOINJ2 SQ (15:01)
[2017-02-27 15:02] LABS: BLOOD GAS VENOUS PO2 13 mmHg (35-40)
[2017-02-27 15:03] LABS: CRITICAL VALUE YES; DRAW SITE IV; FIO2 21 %; OXYGEN DEVICE ROOM AIR; STAT YES
[2017-02-27 15:05] VITALS: O2SAT 99
--- NOTE | 2017-02-27 15:16 | PD ---
HPI Chief Complaint: Diabetic Time Seen by Provider: 14:31 Travel History International Travel<30 days: No Contact w/Intl Traveler<30days: No Traveled to known affect area: No History of Present Illness HPI The patient is a 31-year-old after Palestinian female who presents to the emergency department for nausea, vomiting, decreased oral intake. The patient is a 3 day history of persistent nausea and vomiting with poor oral intake. The patient states she's had some mild epigastric discomfort for the last several days, has had poor appetite. She then developed nausea and vomiting earlier today that was intractable. The patient checked her blood sugar and states it was read as "high ". The patient does have a history of type 1 diabetes diagnosed one year ago and was on Levemir 45 units daily as well as NovoLog. However, the patient states her last physician took her off of Levemir and she is only been using sliding scale NovoLog. The patient uses NovoLog 5 units subcutaneously earlier today. She denies any dysuria, frequency , or urgency. She does note polyuria and polydipsia. The patient denies any fever, chills, sweats, chest pain, or shortness of breath. PFSH Past Medical History Autoimmune Disease: No Blood Disorders: No Cardiovascular Problems: Yes ("RAPID HEART RATE") Diabetes: Yes Patient Takes Glucophage: No Diminished Hearing: No Endocrine: No Genitourinary: No Immune Disorder: No Musculoskeletal: No Neurologic: No Reproductive: No Respiratory: No Immunizations Current: No Tetanus Vaccination: > 5 Years Influenza Vaccination: No ?: Not : 5 Para: 4 Miscarriage: 1 : 0 Tubal Ligation: Yes Past Surgical History Other Surgery: No Social History Alcohol Use: No Tobacco Use: No Substance Use: No Allergies-Medications (Allergen,Severity, Reaction): Coded Allergies: No Known Allergies (Verified Allergy, Unknown, 02/27/17) Reported Meds & Prescriptions Reported Meds & Active Scripts Active Novolog Inj (Insulin Aspart) 100 Unit/Ml Inj 1 Unit SQ ACHS SLIDING SCALE blood sugar >150-180 give 2 units before meal blood sugar 181-200 give 3 units before meal blood sugar 201-220 give 4 units before meal blood sugar >221 give 5 units before meal Reported Novolog Mix 70-30 FlexPen Inj (Insulin Aspart Protam-Asp 70-30 Inj) 300 Unit/3 Ml Pen Units SQ ACHS SLIDING SCALE Review of Systems Except as stated in HPI: all other systems reviewed are Neg General / Constitutional: No: Fever Cardiovascular: No: Chest Pain or Discomfort Respiratory: No: Shortness of Breath Gastrointestinal: Positive: Nausea, Vomiting, Abdominal Pain, No: Diarrhea Genitourinary: No: Dysuria Musculoskeletal: Positive: Weakness Endocrine: Positive: Polyuria, Polydipsia Physical Exam Narrative GENERAL: Awake, alert, actively vomiting 31 year-old female appears her stated age and is hyperventilating. SKIN: Focused skin assessment warm/dry. HEAD: Atraumatic. Normocephalic. EYES: Pupils equal and round. No scleral icterus. No injection or drainage. ENT: No nasal bleeding or discharge. Slightly dry mucous membranes. NECK: Trachea midline. No JVD. CARDIOVASCULAR: Regular rate and rhythm. No murmur appreciated. Heart rate in the 90s. RESPIRATORY: No accessory muscle use. Clear to auscultation. Breath sounds equal bilaterally. GASTROINTESTINAL: Abdomen soft, non-tender, nondistended. No rebound tenderness. MUSCULOSKELETAL: No obvious deformities. No clubbing. No cyanosis. No edema. NEUROLOGICAL: Awake and alert. No obvious cranial nerve deficits. Motor grossly within normal limits. Normal speech. PSYCHIATRIC: Appropriate mood and affect; insight and judgment normal. Data Data Last Documented VS Vital Signs Date Time Temp Pulse Resp B/P (MAP) Pulse Ox O2 Delivery O2 Flow Rate FiO2 02/27/17 14:30 98.3 100 42 143/95 (111) 100 Orders Orders Ondansetron Inj (Zofran Inj) (02/27/17 14:44) Electrocardiogram (02/27/17 14:45) Complete Blood Count With Diff (02/27/17 14:45) Comprehensive Metabolic Panel (02/27/17 14:45) Beta Hydroxybutyrate (Acetone) (02/27/17 14:45) Lactic Acid (02/27/17 14:45) Urinalysis - C+S If Indicated (02/27/17 14:45) Blood Gas Venous (Vbg) (02/27/17 14:45) Blood Glucose (02/27/17 14:45) Blood Glucose (02/27/17 15:45) Ecg Monitoring (02/27/17 14:45) Iv Access Insert/Monitor (02/27/17 14:45) Oximetry (02/27/17 14:45) NPO (02/27/17 14:45) Sodium Chlor 0.9% 1000 Ml Inj (Ns 1000 M (02/27/17 14:45) Sodium Chlor 0.9% 1000 Ml Inj (Ns 1000 M (02/27/17 15:15) Sodium Chloride 0.9% Flush (Ns Flush) (02/27/17 14:45) Lipase (02/27/17 14:45) Ondansetron Inj (Zofran Inj) (02/27/17 14:45) Brand Development Manager / Telemetry CHIDI.Q8H (02/27/17 16:01) ^ Insert Iv (02/27/17 16:01) Diet Npo (02/27/17 Dinner) Sodium Chlor 0.9% 1000 Ml Inj (Ns 1000 M (02/27/17 16:01) Dext 5%-Nacl 0.9% 1000 Ml Inj (D5w-Ns 10 (02/27/17 16:01) Insulin Human Regular Inj (Novolin R Inj (02/27/17 16:15) Insulin Regular (Iv Infusion) (Novolin R (02/27/17 16:15) Potassium Chlor 40 Meq Premix (Kcl 40 Me (02/27/17 16:15) Potassium Chlor 40 Meq Premix (Kcl 40 Me (02/27/17 16:15) Potassium Chlor 20 Meq Premix (Kcl 20 Me (02/27/17 16:15) Potassium Chlor 20 Meq Premix (Kcl 20 Me (02/27/17 16:15) Potassium Chlor 20 Meq Premix (Kcl 20 Me (02/27/17 16:15) Potassium Chlor 20 Meq Premix (Kcl 20 Me (02/27/17 16:15) Potassium Chlor 20 Meq Premix (Kcl 20 Me (02/27/17 16:15) Potassium Chlor 20 Meq Premix (Kcl 20 Me (02/27/17 16:15) Sodium Bicarbonate 8.4% Inj (Sodium Bica (02/27/17 16:15) Sodium Bicarbonate 8.4% Inj (Sodium Bica (02/27/17 16:15) Sodium Phosphate Inj (Sodium Phosphate I (02/27/17 16:15) Hemoglobin (Hgb) A1c (02/27/17 16:01) Basic Metabolic Panel (Bmp) (02/27/17 21:01) Basic Metabolic Panel (Bmp) (02/28/17 03:01) Basic Metabolic Panel (Bmp) (02/28/17 09:01) Basic Metabolic Panel (Bmp) (02/28/17 15:01) Magnesium (Mg) (02/27/17 21:01) Magnesium (Mg) (02/28/17 03:01) Magnesium (Mg) (02/28/17 09:01) Magnesium (Mg) (02/28/17 15:01) Phosphorus (Po4) (02/27/17 21:01) Phosphorus (Po4) (02/28/17 03:01) Phosphorus (Po4) (02/28/17 09:01) Phosphorus (Po4) (02/28/17 15:) Beta Hydroxybutyrate (Acetone) (02/28/17 03:01) Beta Hydroxybutyrate (Acetone) (02/28/17 15:01) Admit Order (Ed Use Only) (02/27/17 16:09) Labs Laboratory Tests Test 02/27/17 14:50 02/27/17 14:53 White Blood Count 10.8 TH/MM3 Red Blood Count 4.41 MIL/MM3 Hemoglobin 14.6 GM/DL Hematocrit 44.6 % Mean Corpuscular Volume 101.2 FL Mean Corpuscular Hemoglobin 33.2 PG Mean Corpuscular Hemoglobin Concent 32.8 % Red Cell Distribution Width 13.4 % Platelet Count 325 TH/MM3 Mean Platelet Volume 9.1 FL Neutrophils (%) (Auto) 77.1 % Lymphocytes (%) (Auto) 16.3 % Monocytes (%) (Auto) 5.2 % Eosinophils (%) (Auto) 0.8 % Basophils (%) (Auto) 0.6 % Neutrophils # (Auto) 8.3 TH/MM3 Lymphocytes # (Auto) 1.8 TH/MM3 Monocytes # (Auto) 0.6 TH/MM3 Eosinophils # (Auto) 0.1 TH/MM3 Basophils # (Auto) 0.1 TH/MM3 CBC Comment DIFF FINAL Differential Comment Blood Urea Nitrogen 12 MG/DL Creatinine 1.34 MG/DL Random Glucose 925 MG/DL Total Protein 8.9 GM/DL Albumin 4.0 GM/DL Calcium Level 9.9 MG/DL Alkaline Phosphatase 203 U/L Aspartate Amino Transf (AST/SGOT) 26 U/L Alanine Aminotransferase (ALT/SGPT) 27 U/L Total Bilirubin 0.4 MG/DL Sodium Level 118 MEQ/L Potassium Level 4.4 MEQ/L Chloride Level 79 MEQ/L Carbon Dioxide Level 20.8 MEQ/L Anion Gap 18 MEQ/L Estimat Glomerular Filtration Rate 55 ML/MIN Lactic Acid Level 5.1 mmol/L Lipase 125 U/L B-Hydroxybutyrate 2.37 MMOL/L Blood Gas Puncture Site IV Blood Gas Patient Temperature 98.6 Venous Blood pH 7.42 Venous Blood Partial Pressure CO2 32 mmHg Venous Blood Partial Pressure O2 13 mmHg Venous Blood HCO3 20 mmol/L Venous Blood Oxygen Saturation 16 % Venous Blood Oxygen Content 3.1 Vol % Venous Blood Base Excess -3.4 mmol/L Oxygen Delivery Device ROOM AIR Blood Gas Inspired Oxygen 21 % MDM Medical Decision Making Medical Screen Exam Complete: Yes Emergency Medical Condition: Yes Medical Record Reviewed: Yes Interpretation(s) EKG reveals normal sinus rhythm with a rate 89. No ischemic changes noted. Laboratory Tests Test 02/27/17 14:50 02/27/17 14:53 White Blood Count 10.8 TH/MM3 Red Blood Count 4.41 MIL/MM3 Hemoglobin 14.6 GM/DL Hematocrit 44.6 % Mean Corpuscular Volume 101.2 FL Mean Corpuscular Hemoglobin 33.2 PG Mean Corpuscular Hemoglobin Concent 32.8 % Red Cell Distribution Width 13.4 % Platelet Count 325 TH/MM3 Mean Platelet Volume 9.1 FL Neutrophils (%) (Auto) 77.1 % Lymphocytes (%) (Auto) 16.3 % Monocytes (%) (Auto) 5.2 % Eosinophils (%) (Auto) 0.8 % Basophils (%) (Auto) 0.6 % Neutrophils # (Auto) 8.3 TH/MM3 Lymphocytes # (Auto) 1.8 TH/MM3 Monocytes # (Auto) 0.6 TH/MM3 Eosinophils # (Auto) 0.1 TH/MM3 Basophils # (Auto) 0.1 TH/MM3 CBC Comment DIFF FINAL Differential Comment Blood Urea Nitrogen 12 MG/DL Creatinine 1.34 MG/DL Random Glucose 925 MG/DL Total Protein 8.9 GM/DL Albumin 4.0 GM/DL Calcium Level 9.9 MG/DL Alkaline Phosphatase 203 U/L Aspartate Amino Transf (AST/SGOT) 26 U/L Alanine Aminotransferase (ALT/SGPT) 27 U/L Total Bilirubin 0.4 MG/DL Sodium Level 118 MEQ/L Potassium Level 4.4 MEQ/L Chloride Level 79 MEQ/L Carbon Dioxide Level 20.8 MEQ/L Anion Gap 18 MEQ/L Estimat Glomerular Filtration Rate 55 ML/MIN Lactic Acid Level 5.1 mmol/L Lipase 125 U/L B-Hydroxybutyrate 2.37 MMOL/L Blood Gas Puncture Site IV Blood Gas Patient Temperature 98.6 Venous Blood pH 7.42 Venous Blood Partial Pressure CO2 32 mmHg Venous Blood Partial Pressure O2 13 mmHg Venous Blood HCO3 20 mmol/L Venous Blood Oxygen Saturation 16 % Venous Blood Oxygen Content 3.1 Vol % Venous Blood Base Excess -3.4 mmol/L Oxygen Delivery Device ROOM AIR Blood Gas Inspired Oxygen 21 % Differential Diagnosis Differential diagnosis includes DKA, hyperglycemia, dehydration, electrolyte abnormality, pancreatitis, gastroparesis, UTI, pyelonephritis, STEMI. Narrative Course IV was established, labs are drawn and sent, and the patient was placed on cardiac telemetry monitoring and continuous pulse oximetry monitoring. EKG was ordered and interpreted. The patient received 2 L of IV fluids and Zofran 4 mg intravenously. VBG was obtained, the patient's pH was 7.42 with a PCO2 31.8 and a bicarbonate of 20.3. PH is normal, the patient does appear to be hyperventilating. The patient's lactic acid was 5.1, sodium was 118 with a glucose of 925, consistent with pseudohyponatremia from hyperglycemia. Patient is a 9 gap is 18, however, pH is normal on VBG. The patient appears to have hyperosmolar non-ketosis, was administered insulin and placed on an insulin drip. The patient also received 2 L of IV fluids. Patient's lactic acid was 5.1, she will benefit from IV fluids. The patient will be admitted to the intensive care unit. The on-call vertical boring mill operator was paged for admission. Critical Care Narrative Aggregate critical care time was 35 minutes. Time to perform other separately billable procedures was not included in the critical care time. My time did not include minutes spent treating any other patients simultaneously or on activities that did not directly contribute to the patient's treatment. The services I provided to this patient were to treat and/or prevent clinically significant deterioration that could result in: Dehydration, DKA, arrhythmia, . I provided critical care services requiring my management, as noted below: Chart data review, documentation time, medication orders and management, vital sign assessments/reviewing monitor data, ordering and reviewing lab tests, ordering and interpreting/reviewing x-rays and diagnostic studies, care of the patient and discussion of the patient with the admitting physicians. Physician Communication Physician Communication The on-call vertical boring mill operator was paged for admission. I discussed the patient with Dr. Griggs who agrees with admission. Diagnosis Primary Impression: Diabetic hyperosmolar non-ketotic state Admitting Information Admitting Physician Requests: Admit Condition: Serious Corey Veras MD Feb 27, 2017 15:16
[2017-02-27 15:44] LABS: AUTOMATED NEUTROPHIL # 8.3 TH/MM3 (1.8-7.7); BASOPHIL # 0.1 TH/MM3 (0-0.2); BASOPHIL % 0.6 % (0.0-2.0); EOSINOPHIL # 0.1 TH/MM3 (0-0.4); EOSINOPHIL % 0.8 % (0.0-4.0); HEMATOCRIT 44.6 % (35.0-46.0); HEMO FLAGS DIFF FINAL; LYMPH % 16.3 % (9.0-44.0); LYMPHOCYTE # 1.8 TH/MM3 (1.0-4.8); MEAN CELL VOLUME 101.2 FL (80.0-100.0); MEAN CORPUSCULAR HEMOGLOBIN 33.2 PG (27.0-34.0); MEAN CORPUSCULAR HGB CONC 32.8 % (32.0-36.0); MONO % 5.2 % (0.0-8.0); NEUT % 77.1 % (16.0-70.0); PLATELET COUNT 325 TH/MM3 (150-450); RED BLOOD COUNT 4.41 MIL/MM3 (4.00-5.30); RED CELL DISTRIBUTION WIDTH 13.4 % (11.6-17.2); WHITE BLOOD COUNT 10.8 TH/MM3 (4.0-11.0)
[2017-02-27 15:49] LABS: ANION GAP 18 MEQ/L (5-15); AST (GOT) 26 U/L (15-37); BICARBONATE 20.8 MEQ/L (21.0-32.0); BLOOD UREA NITROGEN 12 MG/DL (7-18); CHLORIDE 79 MEQ/L (98-107); GLOMERULAR FILTRATION RATE 55 ML/MIN (>89)
[2017-02-27 15:54] LABS: ALKALINE PHOSPHATASE 203 U/L (45-117); ALT (GPT) 27 U/L (10-53); BETA-HYDROXYBUTYRATE 2.37 MMOL/L (0.00-0.39); TOTAL BILIRUBIN ADULT 0.4 MG/DL (0.2-1.0)
[2017-02-27 15:55] LABS: POTASSIUM 4.4 MEQ/L (3.5-5.1)
[2017-02-27 15:57] LABS: SODIUM (NA) 118 MEQ/L (136-145)
[2017-02-27] MEDS: DEXT 5%-NACL 0.9% 1000 ML INJ 1,000 ML IV SCH ×2 (16:01→21:05)
[2017-02-27] MEDS ORDERED: SODIUM CHLOR 0.9% 1000 ML INJ 1,000 ML IV SCH (16:01)
[2017-02-27] MEDS ORDERED: INSULIN HUMAN REGULAR 1,000 UNITS/10 ML VIAL IV PUSH ONE (16:15)
[2017-02-27] MEDS ORDERED: CHLORHEXIDINE GLUCONATE 2 % 1 PACK (2 CLOTHS) TOP PRN (16:15)
[2017-02-27] MEDS ORDERED: RESP: ALBUTEROL 2.5 MG/IPRATROPIUM 0.5 MG NEB (PRN) INH (16:15)
[2017-02-27] MEDS ORDERED: POTASSIUM CHLOR 20 MEQ PREMIX 100 ML IV PRN ×5 (16:15)
[2017-02-27] MEDS ORDERED: MISCELLANEOUS NURSING INFORMATION XX SCH (16:15)
[2017-02-27] MEDS ORDERED: POTASSIUM CHLOR 40 MEQ PREMIX 100 ML IV PRN ×2 (16:15)
[2017-02-27] MEDS ORDERED: MAGNESIUM HYDROXIDE SUSP 30 ML CUP PO PRN (16:15)
[2017-02-27] MEDS ORDERED: SODIUM PHOSPHATE INJ 15 MMOL in SODIUM CHLORIDE 0.9% INJ 100 ML IV PRN (16:15)
[2017-02-27] MEDS ORDERED: BISACODYL 10 MG SUPP RECTAL PRN (16:15)
[2017-02-27] MEDS ORDERED: SODIUM BICARBONATE 8.4% SOLN 50 MEQ/50 ML VIAL IV PUSH PRN ×2 (16:15)
[2017-02-27] MEDS ORDERED: INSULIN REGULAR (IV INFUSION) 100 UNITS in SODIUM CHLORIDE 0.9% INJ 99 ML IV PRN (16:15)
[2017-02-27] MEDS ORDERED: SENNOSIDES 8.6 MG TAB PO PRN (16:15)
[2017-02-27] MEDS ORDERED: LACTULOSE SYRUP 20 GM/30 ML CUP PO PRN (16:15)
--- NOTE | 2017-02-27 16:30 | HHI.HP ---
HPI Service Critical Care Medicine Primary Care Physician Unknown Admission Diagnosis hyperosmolar non ketosis, hyperglycemia, lactic acidosis, dehydratio Diagnosis: (1) Diabetic hyperosmolar non-ketotic state Diagnosis: Principal (2) DKA (diabetic ketoacidoses) Diagnosis: Principal (3) ADAN (acute kidney injury) Diagnosis: Principal (4) Volume depletion Diagnosis: Principal (5) Diabetes type I Diagnosis: Secondary (6) Pseudohypnatremia Diagnosis: Secondary Chief Complaint: Nausea/vomting, DKA Travel History International Travel<30 Days: No Contact w/Intl Traveler <30 Da: No Traveled to Known Affected Are: No History of Present Illness The patient is a 31-year-old after Citizen Of [place] female with Type DM who presented to the emergency department for nausea, vomiting, and dehydration. Blood sugar was reading "high". Patient was on Levemir 45 units daily (per ED documentation ) and NovoLog SSI and she states that her physician took her off of Levemir and she is only been using sliding scale NovoLog. Patient is a very poor historian and cannot remember the exact doses of insulin. In the ER patient received 2 L normal saline bolus. The patient's lactic acid was 5.1, sodium was 118, glucose 925, anion gap 18 but normal pH on VBG. Beta hydroxybutyrate was 2.5. Patient was placed on insulin drip and the critical care was asked to admit. She has mild DKA but mostly appears to be hyperosmolar non-ketosis Review of Systems ROS Limitations: Other (as per HPI) Past Family Social History Allergies: Coded Allergies: No Known Allergies (Verified Allergy, Unknown, 02/27/17) Past Medical History Type 1 diabetes Noncompliance Past Surgical History Tubal ligation Reported Medications Novolog Mix 70-30 FlexPen Inj (Insulin Aspart Protam-Asp 70-30 Inj) 300 Unit/3 Ml Pen Units SQ ACHS SLIDING SCALE Active Ordered Medications On insulin infusion Family History Father had DM Social History No alcohol or tobacco use Physical Exam Vital Signs Vital Signs Date Time Temp Pulse Resp B/P (MAP) Pulse Ox O2 Delivery O2 Flow Rate FiO2 02/27/17 14:30 98.3 100 42 143/95 (111) 100 Physical Exam GENERAL: Awake, alert, 31 year-old female appears dehydrated SKIN: Warm/dry. HEAD: Atraumatic. Normocephalic. EYES: Pupils equal and round. No scleral icterus. No injection or drainage. ENT: Dry mucous membranes. NECK: Trachea midline. No JVD. CARDIOVASCULAR: Tachycardic rate and rhythm. No murmur appreciated. RESPIRATORY: Clear to auscultation. Breath sounds equal bilaterally. GASTROINTESTINAL: Abdomen soft, non-tender, nondistended. No rebound tenderness. MUSCULOSKELETAL: No edema. NEUROLOGICAL: Awake and alert. Motor grossly within normal limits. Normal speech. . Laboratory Laboratory Tests Test 02/27/17 14:50 02/27/17 14:53 White Blood Count 10.8 Red Blood Count 4.41 Hemoglobin 14.6 Hematocrit 44.6 Mean Corpuscular Volume 101.2 Mean Corpuscular Hemoglobin 33.2 Mean Corpuscular Hemoglobin Concent 32.8 Red Cell Distribution Width 13.4 Platelet Count 325 Mean Platelet Volume 9.1 Neutrophils (%) (Auto) 77.1 Lymphocytes (%) (Auto) 16.3 Monocytes (%) (Auto) 5.2 Eosinophils (%) (Auto) 0.8 Basophils (%) (Auto) 0.6 Neutrophils # (Auto) 8.3 Lymphocytes # (Auto) 1.8 Monocytes # (Auto) 0.6 Eosinophils # (Auto) 0.1 Basophils # (Auto) 0.1 CBC Comment DIFF FINAL Differential Comment Blood Urea Nitrogen 12 Creatinine 1.34 Random Glucose 925 Total Protein 8.9 Albumin 4.0 Calcium Level 9.9 Alkaline Phosphatase 203 Aspartate Amino Transf (AST/SGOT) 26 Alanine Aminotransferase (ALT/SGPT) 27 Total Bilirubin 0.4 Sodium Level 118 Potassium Level 4.4 Chloride Level 79 Carbon Dioxide Level 20.8 Anion Gap 18 Estimat Glomerular Filtration Rate 55 Lactic Acid Level 5.1 Lipase 125 B-Hydroxybutyrate 2.37 Blood Gas Puncture Site IV Blood Gas Patient Temperature 98.6 Venous Blood pH 7.42 Venous Blood Partial Pressure CO2 32 Venous Blood Partial Pressure O2 13 Venous Blood HCO3 20 Venous Blood Oxygen Saturation 16 Venous Blood Oxygen Content 3.1 Venous Blood Base Excess -3.4 Oxygen Delivery Device ROOM AIR Blood Gas Inspired Oxygen 21 Result Diagram: 02/27/17 1450 02/27/17 1450 Imaging No new imaging studies Caprini VTE Risk Assessment Caprini VTE Risk Assessment: Mod/High Risk (score >= 2) Caprini Risk Assessment Model Point Value = 1 Point Value = 2 Point Value = 3 Point Value = 5 Age 41-60 Minor surgery BMI > 25 kg/m2 Swollen legs Varicose veins or History of unexplained or recurrent spontaneous Oral contraceptives or hormone replacement Sepsis (< 1 month) Serious lung disease, including pneumonia (< 1 month) Abnormal pulmonary function Acute myocardial infarction Congestive heart failure (< 1 month) History of inflammatory bowel disease Medical patient at bed rest Age 61-74 Arthroscopic surgery Major open surgery (> 45 min) Laparoscopic surgery (> 45 min) Malignancy Confined to bed (> 72 hours) Immobilizing plaster cast Central venous access Age >= 75 History of VTE Family history of VTE Factor V Leiden Prothrombin [id number] Lupus anticoagulant Anticardiolipin antibodies Elevated serum homocysteine Heparin-induced thrombocytopenia Other congenital or acquired thrombophilia Stroke (< 1 month) Elective arthroplasty Hip, pelvis, or leg fracture Acute spinal cord injury (< 1 month) Prophylaxis Regimen Total Risk Factor Score Risk Level Prophylaxis Regimen 0-1 Low Early ambulation 2 Moderate Order ONE of the following: *Sequential Compression Device (SCD) *Heparin 5000 units SQ BID 3-4 Higher Order ONE of the following medications: *Heparin 5000 units SQ TID *Enoxaparin/Lovenox 40 mg SQ daily (WT < 150 kg, CrCl > 30 mL/min) *Enoxaparin/Lovenox 30 mg SQ daily (WT < 150 kg, CrCl > 10-29 mL/min) *Enoxaparin/Lovenox 30 mg SQ BID (WT < 150 kg, CrCl > 30 mL/min) AND/OR *Sequential Compression Device (SCD) 5 or more Highest Order ONE of the following medications: *Heparin 5000 units SQ TID (Preferred with Epidurals) *Enoxaparin/Lovenox 40 mg SQ daily (WT < 150 kg, CrCl > 30 mL/min) *Enoxaparin/Lovenox 30 mg SQ daily (WT < 150 kg, CrCl > 10-29 mL/min) *Enoxaparin/Lovenox 30 mg SQ BID (WT < 150 kg, CrCl > 30 mL/min) AND *Sequential Compression Device (SCD) Assessment and Plan Assessment and Plan NEURO: Lethargy - Most likely secondary to dehydration, continue aggressive hydration RESP: - Nasal cannula oxygen if needed CV: Dehydration Mild tachycardia - Normal saline IV fluids 2l bolus and continue IV fluids per protocol GI: - NPO until nausea vomiting improves - IV famotidine : Acute kidney insufficiency - Monitor renal function closely. Continue aggressive hydration as above ID: - No indication for antibiotics at this time, check UA HEME: - Monitor CBC, CMP ENDO: Uncontrolled diabetes with hyperosmolar nonketotic state Mild DKA - IV insulin and IV fluids per DKA protocol - Transition to subcutaneous insulin with long-acting insulin once patient can eat and gap is closed - Aggressive IV hydration PROPH: - Bilateral lower extremity SCDs. Lovenox, Famotidine LINES: - Utilize peripheral IVs, central line if needed Level 3 new admit Code Status Full Discussed Condition With Dr. Veras Problem Qualifiers (1) Diabetes type I: Qualified Codes: E10.8 - Type 1 diabetes mellitus with unspecified complications Pastora Griggs MD Feb 27, 2017 16:30
[2017-02-27] MEDS: POTASSIUM CHLOR 20 MEQ PREMIX 100 ML IV PRN ×2 (16:31→18:27)
[2017-02-27 16:33] VITALS: BP 120/70; PULSE 88; RESP 16; O2SAT 98
[2017-02-27 17:35] LABS: BLOOD, URINE NEG (NEG); GLUCOSE,URINE 1000 mg/dL (NEG); KETONE, URINE 80 mg/dL (NEG); MUCUS URINE FEW /lpf (OCC); NITRITE,URINE NEG (NEG); SQUAMOUS EPITHELIAL CELL URINE <1 /hpf (0-5)
[2017-02-27 17:36] LABS: COMMENT (UR) CULT NOT INDICATED; CULTURE IF INDICATED CULT NOT INDICATED; URINE COLOR STRAW (YELLW/STRAW)
[2017-02-27 18:00] VITALS: PULSE 90
[2017-02-27] MEDS: HEPARIN SODIUM - SQ 10,000 UNITS/ML VIAL SQ SCH (18:27)
[2017-02-27 19:25] LABS: LACTIC ACID GHOST NOT REPORTABLE
[2017-02-27 20:00] VITALS: BP 101/57; PULSE 100; PULSE 95; RESP 16; TEMP 99.4; O2SAT 100
[2017-02-27] MEDS ORDERED: FAMOTIDINE 20 MG/2 ML VIAL IV PUSH SCH (21:00)
[2017-02-27] MEDS: DOCUSATE SODIUM 50 MG/SENNA 8.6 MG TAB PO SCH (21:04)
[2017-02-27 21:30] LABS: ANION GAP 7 MEQ/L (5-15); BICARBONATE 23.4 MEQ/L (21.0-32.0); BLOOD UREA NITROGEN 6 MG/DL (7-18); CHLORIDE 112 MEQ/L (98-107); GLOMERULAR FILTRATION RATE 132 ML/MIN (>89); MAGNESIUM 1.8 MG/DL (1.5-2.5); POTASSIUM 3.7 MEQ/L (3.5-5.1); SODIUM (NA) 142 MEQ/L (136-145)
[2017-02-27 22:00] VITALS: PULSE 88
[2017-02-27] MEDS ORDERED: GLUCAGON 1 MG/ML VIAL OTHER PRN (22:45)
[2017-02-27] MEDS ORDERED: DC Insulin drip 2 hrs post basal insulin dose ONE (22:45)
[2017-02-27] MEDS ORDERED: DEXTROSE 50% IN WATER 50 ML VIAL(D50) IV PUSH PRN (22:45)
[2017-02-27] MEDS ORDERED: GLUCAGON 1 MG/ML VIAL IM/SQ PRN (22:45)
[2017-02-27] MEDS ORDERED: DEXTROSE 50% IN WATER 50 ML VIAL(D50) IV PRN (22:45)
[2017-02-27] MEDS ORDERED: DC previous DKA orders (HMC 1917) ONE (22:45)
[2017-02-28] VITALS (12 sets, daily range): BP systolic 111–120; BP diastolic 67–77; PULSE 79–95; RESP 17–32; TEMP 96.8–98.9; O2SAT 98–100
[2017-02-28] MEDS: INSULIN ASPART SUPPLEMENTAL SCALE SQ SCH ×6 (03:30→19:51)
[2017-02-28] MEDS: CHLORHEXIDINE GLUCONATE 2 % 1 PACK (2 CLOTHS) TOP SCH (03:30)
[2017-02-28 04:15] LABS: BETA-HYDROXYBUTYRATE 2.49 MMOL/L (0.00-0.39); BICARBONATE 20.1 MEQ/L (21.0-32.0); MAGNESIUM 1.8 MG/DL (1.5-2.5)
[2017-02-28 04:27] LABS: CALCIUM-PROTEIN CORRECTED 8.2 MG/DL (8.5-10.1)
[2017-02-28] MEDS: HEPARIN SODIUM - SQ 10,000 UNITS/ML VIAL SQ SCH (05:51)
[2017-02-28] MEDS ORDERED: INSULIN DETEMIR 100 UNITS/ML VIAL SQ SCH (09:00)
[2017-02-28] MEDS: DOCUSATE SODIUM 50 MG/SENNA 8.6 MG TAB PO SCH ×2 (09:07→19:51)
[2017-02-28] MEDS: INSULIN DETEMIR 100 UNITS/ML VIAL SQ SCH ×2 (09:08→19:50)
--- NOTE | 2017-02-28 09:39 | HHI.CCPN ---
Subjective Remarks/Hospital Course The patient is a 31-year-old after [place] female with Type DM who presented to the emergency department for nausea, vomiting, and dehydration. Blood sugar was reading "high". Patient was on Levemir 45 units daily (per ED documentation ) and NovoLog SSI and she states that her physician took her off of Levemir and she is only been using sliding scale NovoLog. Patient is a very poor historian and cannot remember the exact doses of insulin. In the ER patient received 2 L normal saline bolus. The patient's lactic acid was 5.1, sodium was 118, glucose 925, anion gap 18 but normal pH on VBG. Beta hydroxybutyrate was 2.5. Patient was placed on insulin drip and the critical care was asked to admit. She has mild DKA but mostly appears to be hyperosmolar non-ketosis SUBJ 02/28/17 - Blood sugar control improved not adequate. DKA resolved anion gap has closed, but a.m. blood sugar 245. Blood sugar transition orders given. Will start Levemir with pre-meal NovoLog insulin. healthcare educator requested Objective Vital Signs Date Time Temp Pulse Resp B/P (MAP) Pulse Ox O2 Delivery O2 Flow Rate FiO2 02/28/17 08:00 98.3 82 20 120/67 (84) 100 02/27/17 16:33 Room Air 02/27/17 15:05 21 Intake and Output 02/28/17 02/28/17 03/01/17 08:00 16:00 00:00 Intake Total 350 ml Balance 350 ml Result Diagram: 02/27/17 1450 02/28/17 0312 Other Results Laboratory Tests Test 02/27/17 14:53 Blood Gas Puncture Site IV Blood Gas Patient Temperature 98.6 Venous Blood pH 7.42 (7.360-7.400) Venous Blood Partial Pressure CO2 32 mmHg (44-48) Venous Blood Partial Pressure O2 13 mmHg (35-40) Venous Blood HCO3 20 mmol/L (22-26) Venous Blood Oxygen Saturation 16 % (70-76) Venous Blood Oxygen Content 3.1 Vol % (9.0-17.0) Venous Blood Base Excess -3.4 mmol/L (-2-2) Oxygen Delivery Device ROOM AIR Blood Gas Inspired Oxygen 21 % Imaging No new imaging studies Objective Remarks GENERAL: Awake, alert, 31 year-old female mildly tachycardic SKIN: Warm/dry. HEAD: Atraumatic. Normocephalic. EYES: Pupils equal and round. No scleral icterus. No injection or drainage. ENT: Dry mucous membranes. NECK: Trachea midline. No JVD. CARDIOVASCULAR: Tachycardic rate and rhythm. No murmur appreciated. RESPIRATORY: Clear to auscultation. Breath sounds equal bilaterally. GASTROINTESTINAL: Abdomen soft, non-tender, nondistended. No rebound tenderness. MUSCULOSKELETAL: No edema. NEUROLOGICAL: Awake and alert. Motor grossly within normal limits. Normal speech. . A/P Assessment and Plan NEURO: - Minimize any sedation RESP: - Nasal cannula oxygen if needed CV: Dehydration Mild tachycardia - s/p Normal saline IV fluids 4l bolus and continue IV NS 75 ml per hour GI: - Start ADA diet - DC IV famotidine : Acute kidney insufficiency - Monitor renal function closely. Continue aggressive hydration as above ID: - No indication for antibiotics at this time, check UA HEME: - Monitor CBC, CMP ENDO: Uncontrolled diabetes with hyperosmolar nonketotic state Mild DKA - IV insulin and IV fluids per DKA protocol. DC DKA protocol. Start Levemir 10 U q12, with Novolog 3U premeal and SSI - Consult clinical unit educator PROPH: - Bilateral lower extremity SCDs. DC Lovenox, Famotidine LINES: - Utilize peripheral IVs, central line if needed Level 2 Consult [facility] to assume care in am, transfer to Med surg. Cannot DC home due to inadequate sugar control in a Type 1 Diabetic Pastora Griggs MD Feb 28, 2017 09:39
[2017-02-28] MEDS ORDERED: INFLUENZA VIRUS VACCINE (QUADRIVALENT) 0.5 ML SYR IM ONE (10:00)
[2017-02-28 11:10] LABS: BICARBONATE 21.4 MEQ/L (21.0-32.0); POTASSIUM 3.7 MEQ/L (3.5-5.1)
[2017-02-28] MEDS ORDERED: INSULIN ASPART 1,000 UNITS/10 ML VIAL SQ SCH (12:00)
[2017-02-28 16:05] LABS: HEMOGLOBIN A1a 1.8 %; HEMOGLOBIN Ao 67.3 %; HEMOGLOBIN F 4.9 %; HEMOGLOBIN LA1C 1.9 %; HEMOGLOBIN P3 6.1 %
[2017-02-28 16:22] LABS: BETA-HYDROXYBUTYRATE 0.19 MMOL/L (0.00-0.39); BICARBONATE 23.7 MEQ/L (21.0-32.0); MAGNESIUM 1.9 MG/DL (1.5-2.5); POTASSIUM 3.8 MEQ/L (3.5-5.1)
[2017-02-28] MEDS: INSULIN ASPART 1,000 UNITS/10 ML VIAL SQ SCH (17:00)
--- NOTE | 2017-02-28 19:13 | EKG ---
Date Performed: 02/27/2017 Time Performed: 15:05:02 PTAGE: 31 years EKG: Sinus rhythm POSSIBLE RIGHT ATRIAL ENLARGEMENT BORDERLINE ECG PREVIOUS TRACING : 05/06/2007 10.30.02 Since previous tracing, no significant change noted DOCTOR: Andrae Sullivan Interpretating Date/Time 03/03/2017 08:34:47
[2017-03-01] VITALS: BP 111/69; PULSE 86; RESP 17; TEMP 97.4; O2SAT 100
[2017-03-01] MEDS: INSULIN ASPART SUPPLEMENTAL SCALE SQ SCH ×6 (00:19→20:00)
[2017-03-01] MEDS: CHLORHEXIDINE GLUCONATE 2 % 1 PACK (2 CLOTHS) TOP SCH (04:00)
[2017-03-01 08:00] VITALS: BP 105/58; PULSE 87; RESP 18; TEMP 96.3; O2SAT 98
[2017-03-01] MEDS: INSULIN DETEMIR 100 UNITS/ML VIAL SQ SCH ×2 (08:48→20:00)
[2017-03-01] MEDS: INSULIN ASPART 1,000 UNITS/10 ML VIAL SQ SCH ×3 (08:48→17:00)
[2017-03-01] MEDS: DOCUSATE SODIUM 50 MG/SENNA 8.6 MG TAB PO SCH ×2 (08:50→20:00)
[2017-03-01 12:00] VITALS: BP 107/64; PULSE 92; RESP 18; TEMP 98.1; O2SAT 100
--- NOTE | 2017-03-01 15:04 | HHI.PR ---
Subjective Remarks patient eating well. Denies cp/sob. Blood sugar better this am. Noww blood sugar in the 200's Objective Vitals Vital Signs Date Time Temp Pulse Resp B/P (MAP) Pulse Ox O2 Delivery O2 Flow Rate FiO2 03/01/17 12:00 98.1 92 18 107/64 (78) 100 03/01/17 08:00 96.3 87 18 105/58 (74) 98 03/01/17 00:00 97.4 86 17 111/69 (83) 100 02/28/17 20:00 96.8 95 19 111/74 (86) 100 02/28/17 20:00 98.7 95 24 119/77 (91) 100 02/28/17 20:00 95 02/28/17 18:00 93 02/28/17 16:00 86 02/28/17 16:00 98.5 86 32 114/75 (88) 100 I/O 02/28/17 02/28/17 02/28/17 03/01/17 03/01/17 03/01/17 07:00 15:00 23:00 07:00 15:00 23:00 Intake Total 350 ml 1090 ml Output Total 1750 ml Balance 350 ml -660 ml Intake Oral 350 ml 1090 ml Output Urine Total 1750 ml # Voids 2 1 2 # Bowel Movements 0 2 Result Diagram: 02/27/17 1450 02/28/17 1513 Objective Remarks AAOx3 PERRLA Clear lungs BL Abdomen soft, nt, nd no edema in lower extremities Medications and IVs Current Medications Medications (Trade) Dose Ordered Sig/Lisette Route Start Time Stop Time Status Last Admin (NS Flush) 2 ml UNSCH PRN IVF 02/27/17 14:45 (Duoneb Neb) 1 ampule Q2HR NEB PRN INH 02/27/17 16:15 Miscellaneous Information 1 Q361D XX 02/27/17 16:15 (Chlorhexidine 2% Cloth) 3 pack Taper DAILY@04 TOP 02/28/17 04:00 02/24/18 03:59 02/28/17 03:30 (Chlorhexidine 2% Cloth) 3 pack UNSCH PRN TOP 02/27/17 16:15 (Tiffany-Colace) 1 tab BID PO 02/27/17 21:00 03/01/17 08:50 (Milk Of Magnesia Liq) 30 ml Q12H PRN PO 02/27/17 16:15 (Senokot) 17.2 mg Q12H PRN PO 02/27/17 16:15 (Dulcolax Supp) 10 mg DAILY PRN RECTAL 02/27/17 16:15 (Lactulose Liq) 30 ml DAILY PRN PO 02/27/17 16:15 (NovoLOG SUPPLEMENTAL SCALE) 1 Q4HR SQ 02/28/17 00:00 03/01/17 12:03 (D50w (Vial) Inj) 25 ml UNSCH PRN IV 02/27/17 22:45 (Glucagon Inj) 1 mg UNSCH PRN IM/SQ 02/27/17 22:45 (Levemir Inj) 10 units Q12H SQ 02/28/17 09:00 03/01/17 08:48 (NovoLOG INJ) 7 units TIDAC SQ 02/28/17 17:00 03/01/17 12:03 A/P Problem List: (1) Diabetic hyperosmolar non-ketotic state ICD Code: E11.00 - Type 2 diabetes mellitus with hyperosmolarity without nonketotic hyperglycemic-hyperosmolar coma (N[facility]) Status: Acute (2) DKA (diabetic ketoacidoses) ICD Code: E13.10 - Diabetic ketoacidosis Status: Acute (3) ADAN (acute kidney injury) ICD Code: N17.9 - Acute kidney failure, unspecified (4) Volume depletion ICD Code: E86.9 - Volume depletion Status: Acute (5) Diabetes type I ICD Code: E10.9 - Type 1 diabetes mellitus without complications Status: Acute (6) Pseudohypnatremia Assessment and Plan NEURO: - Patient awake and alert. RESP: - Nasal cannula oxygen if needed CV: Dehydration Mild tachycardia - s/p Normal saline IV fluids 4l bolus and continue IV NS 75 ml per hour - 03/01 much improved. GI: - Start ADA diet - Palced on IV Famotidine which has been discontinued. : Acute kidney insufficiency Lactic acidosis - Monitor renal function closely. Continue aggressive hydration as above - 03/01 Lactic acid 5.1 on admission. Treated with IV fluids. Lactic acidosis now resolved. ID: - No indication for antibiotics at this time, check UA 03/01 UA negative. HEME: - Monitor CBC, CMP ENDO: DKA - Patient presented with a blood sugar of 925, lactic acid 5.1, elevated beta hydroxybutyrate of 2.37 and an anion gap of 18. The patient was treated with IV fluids and IV insulin per DKA protocol. I will increase insulin Levemir to 15 units subcutaneously every 2 hours and continue prandial insulin with insulin NovoLog 7 units subcutaneous after meals. Continue SSI with insulin NovoLog and adjust insulin for a target glucose of less than 180. Consult nurse informatics educator. Continue with diabetic diet. DKA has now resolved with a close to 9, improved beta hydroxybutyrate of 0.19 down from 2.37. PROPH: - Bilateral lower extremity SCDs. DC Lovenox, Famotidine ELECTROLYTES - Pseudohyponatremia with a sodium of 118 likely secondary to severe hyperglycemia. Now much improved. Continue to monitor sodium. LINES: - Utilize peripheral IVs, central line if needed Problem Qualifiers (1) Diabetes type I: Qualified Codes: E10.8 - Type 1 diabetes mellitus with unspecified complications Jose Singleton MD Mar 01, 2017 15:04
[2017-03-01 16:00] VITALS: BP 122/65; PULSE 84; RESP 17; TEMP 98; O2SAT 100
[2017-03-01 20:00] VITALS: BP 116/69; PULSE 93; RESP 17; TEMP 96.5; O2SAT 100
[2017-03-02] VITALS: BP 95/60; PULSE 88; RESP 17; TEMP 96.3; O2SAT 100
[2017-03-02] MEDS: INSULIN ASPART SUPPLEMENTAL SCALE SQ SCH ×4 (04:00→12:19)
[2017-03-02] MEDS: CHLORHEXIDINE GLUCONATE 2 % 1 PACK (2 CLOTHS) TOP SCH (04:00)
[2017-03-02 08:00] VITALS: BP 100/64; PULSE 81; RESP 16; TEMP 96.5; O2SAT 100
[2017-03-02] MEDS: INSULIN DETEMIR 100 UNITS/ML VIAL SQ SCH (09:06)
[2017-03-02] MEDS: DOCUSATE SODIUM 50 MG/SENNA 8.6 MG TAB PO SCH (09:06)
[2017-03-02] MEDS: INSULIN ASPART 1,000 UNITS/10 ML VIAL SQ SCH ×2 (09:07→12:19)
[2017-03-02 12:00] VITALS: BP 95/52; PULSE 92; RESP 15; TEMP 97.3; O2SAT 100
[2017-03-02] MEDS ORDERED: LEVEMIR SQ (15:25)
[2017-03-02] MEDS ORDERED: NOVOLOGP2 SQ ×2 (15:25→15:30)
[2017-03-02] MEDS ORDERED: LANCETS1 MI1 (15:25)
[2017-03-02] MEDS ORDERED: GLUCTES12 (15:25)
[2017-03-02] MEDS ORDERED: BIOM30MI (15:25)
[2017-03-02] MEDS ORDERED: INSU1MIS15 (15:25)
--- NOTE | 2017-03-02 15:26 | HHI.DCPOC ---
Discharge Care Plan Diagnosis: (1) Diabetes type I (2) Pseudohypnatremia (3) ADAN (acute kidney injury) (4) DKA (diabetic ketoacidoses) (5) Volume depletion Goals to Promote Your Health * To prevent worsening of your condition and complications * To maintain your health at the optimal level Directions to Meet Your Goals Take your medications as prescribed Follow your dietary instruction Follow activity as directed Keep your appointments as scheduled Take your immunizations and boosters as scheduled If your symptoms worsen call your PCP, if no PCP go to Urgent Care Center or Emergency Room Smoking is Dangerous to Your Health. Avoid second hand smoke Call the 24-hour hour crisis hotline for domestic abuse at Jose Singleton MD Mar 02, 2017 15:26
== END 2017-03-02 16:05 | disposition home or self-care (01) | DRG 638 ==
LOC: NEPC 14:25 → NEDA 16:11 → HIMW 17:36 → N07A 02-28 20:59
PROVIDERS: ADMIT Hospitalist; ATTEND Hospitalist
DX: E10.10 Type 1 diabetes mellitus with ketoacidosis without coma (principal); E87.0 Hyperosmolality and hypernatremia; N17.9 Acute kidney failure, unspecified; E86.0 Dehydration; Z79.4 Long term (current) use of insulin; Z91.19 Patient's noncompliance with other medical treatment and regimen; R00.0 Tachycardia, unspecified
CPT/HCPCS: 80048; 80053; 81001; 82010; 82805; 82948; 83036; 83605; 83690; 83735; 84100; 84155; 85025; 87641; 90686; 93005; 96361; 96374; J1644; J1815; J1817; J2405; J3480; J7030; J7042; Q2038

== ENCOUNTER 2017-09-13 08:03 | Emergency (ER) | payer MEDICAID ==
[~2017-09-13] VITALS: Ht 165.1 cm; Wt 45.0 kg
[~2017-09-13 08:03] MED LIST changes: +BIOM30MI; +GLUCTES12; +INSU1MIS15; +LANCETS1 MI1; +LEVEMIR SQ; -NOVOINJ2 SQ; +NOVOLOGP2 SQ; -NOVOLOGSS SQ
[2017-09-13 08:20] VITALS: BP 94/69; PULSE 164; RESP 22; TEMP 97.6; O2SAT 100
[2017-09-13] MEDS ORDERED: ADENOSINE IV SOLN 3 MG/ML 2 ML VIAL ONE (08:36)
[2017-09-13] MEDS ORDERED: SODIUM CHLOR 0.9% 1000 ML INJ 1,000 ML IV ONE ×2 (08:38→09:08)
[2017-09-13 08:40] VITALS: BP 117/79; PULSE 68; RESP 20; O2SAT 100
[2017-09-13] MEDS ORDERED: SODIUM CHLORIDE 0.9% FLUSH 10 ML FLUSH IVF PRN (08:45)
--- NOTE | 2017-09-13 08:56 | RADRPT ---
EXAM DATE: 09/13/2017 8:52 AM EDT AGE/SEX: 31 years / Female INDICATIONS: Center chest pain. CLINICAL DATA: This is the patient's initial encounter. Patient reports that signs and symptoms have been present for 1 day and indicates a pain score of 8/10. MEDICAL/SURGICAL HISTORY: Diabetes mellitus type I. Tubal ligation. COMPARISON: [facility] – [place]ST SING[place] AP, 08/23/2014. . FINDINGS: A single AP view of the chest demonstrates the lungs to be symmetrically aerated without evidence of mass, infiltrate or effusion. The cardiomediastinal contours are unremarkable. Osseous structures a re intact. CONCLUSION: No acute cardiopulmonary disease Electronically signed by: Jeevan Carver MD 09/13/2017 8:55 AM EDT
[2017-09-13 09:17] LABS: AUTOMATED NEUTROPHIL # 4.9 TH/MM3 (1.8-7.7); BASOPHIL # 0.1 TH/MM3 (0-0.2); EOSINOPHIL % 0.6 % (0.0-4.0); HEMATOCRIT 42.4 % (35.0-46.0); HEMOGLOBIN 14.2 GM/DL (11.6-15.3); LYMPH % 27.1 % (9.0-44.0); MEAN CELL VOLUME 95.4 FL (80.0-100.0); MEAN CORPUSCULAR HGB CONC 33.6 % (32.0-36.0); MEAN PLATELET VOLUME 8.7 FL (7.0-11.0); MONO % 5.9 % (0.0-8.0); MONOCYTE # 0.4 TH/MM3 (0-0.9); NEUT % 65.4 % (16.0-70.0); PLATELET COUNT 301 TH/MM3 (150-450); RED BLOOD COUNT 4.45 MIL/MM3 (4.00-5.30); RED CELL DISTRIBUTION WIDTH 13.3 % (11.6-17.2); WHITE BLOOD COUNT 7.5 TH/MM3 (4.0-11.0)
[2017-09-13 09:30] VITALS: BP 110/81; PULSE 76; RESP 18; O2SAT 100
[2017-09-13 09:33] LABS: BACTERIA, URINE FEW /hpf; BILIRUBIN, URINE NEG (NEG); BLOOD, URINE MOD (NEG); GLUCOSE,URINE 1000 mg/dL (NEG); KETONE, URINE 40 mg/dL (NEG); NITRITE,URINE NEG (NEG); SQUAMOUS EPITHELIAL CELL URINE 1 /hpf (0-5); URINE COLOR LIGHT-YELLOW (YELLW/STRAW); URINE LEUKOCYTE ESTERASE SMALL (NEG)
[2017-09-13 10:00] LABS: ALBUMIN 3.9 GM/DL (3.4-5.0); ALKALINE PHOSPHATASE 138 U/L (45-117); ALT (GPT) 23 U/L (10-53); AST (GOT) 18 U/L (15-37); BICARBONATE 23.2 MEQ/L (21.0-32.0); BLOOD UREA NITROGEN 12 MG/DL (7-18); CALCIUM 9.7 MG/DL (8.5-10.1); CHLORIDE 96 MEQ/L (98-107); CREATININE 0.87 MG/DL (0.50-1.00); GLOMERULAR FILTRATION RATE 91 ML/MIN (>89); MAGNESIUM 1.9 MG/DL (1.5-2.5); SODIUM (NA) 132 MEQ/L (136-145); TOTAL BILIRUBIN ADULT 0.3 MG/DL (0.2-1.0); TOTAL PROTEIN 8.4 GM/DL (6.4-8.2)
[2017-09-13] MEDS ORDERED: INSULIN ASPART 1,000 UNITS/10 ML VIAL SQ ONE (10:00)
[2017-09-13 10:04] LABS: GLUCOSE,RANDOM 464 MG/DL (74-106)
--- NOTE | 2017-09-13 10:14 | PD ---
HPI Chief Complaint: Chest Pain Time Seen by Provider: 08:31 Travel History International Travel<30 days: No Contact w/Intl Traveler<30days: No Traveled to known affect area: No History of Present Illness HPI Is a 31-year-old woman who presents to the emergency department chest pain. States symptoms started last night. Associated shortness of breath palpitations. She is a history of diabetes. States her blood sugars been a little bit high recently the 200s. No other recent illness or injury. She states she has had similar chest pains and palpitations in the past, but does not recall ever being treated with adenosine or similar episodes. History of DKA in the records. No recent other illness or injury persisting, moderately severe. History Past Medical History Narrative Medical Type 1 diabetes Tetanus Vaccination: Unknown Influenza Vaccination: Yes LMP: Last month : 5 Para: 4 Social History Alcohol Use: No Tobacco Use: No Allergies-Medications (Allergen,Severity, Reaction): Coded Allergies: No Known Allergies (Verified Allergy, Unknown, 09/13/17) Reported Meds & Prescriptions Reported Meds & Active Scripts Active Novolog Inj (Insulin Aspart) 1,000 Unit/10 Ml Vial 2-12 Units SQ ACHS Max dose at bedtime (8) units; sugars less than 70,(0) units; sugars 150-199,(2) units; sugars 200-249,(4) units; sugars 250-299,(7) units; sugars 300-349,(10) units; sugars greater than 349,(12)units Sharpsafety Sharps Contai (Parenteral Therapy Supplies) 1 Mis Mis Ea .ROUTE DIRECTED Glucocom Test Strips (Blood Glucose Test Strips) 1 Shaniqua Shaniqua Ea .ROUTE DIRECTED Lancets 1 Mis Mis Ea .ROUTE DIRECTED Insulin Syringe/U-100/31G X 5/16" 1 ml 31 Gauge X 5/16" Mis Ea .ROUTE DIRECTED Levemir Inj (Insulin Detemir) 1,000 unit/ 10 ML Vial 15 Units SQ Q12H Do not mix with any other Insulin. Novolog Inj (Insulin Aspart) 1,000 Unit/10 Ml Vial 7 Units SQ TIDAC Do not apply injection if not going to eat. Review of Systems Except as stated in HPI: all other systems reviewed are Neg Physical Exam Narrative GENERAL: Well-appearing 31-year-old woman, uncomfortable but nontoxic. SKIN: Focused skin assessment warm/dry. HEAD: Atraumatic. Normocephalic. EYES: Pupils equal and round. No scleral icterus. No injection or drainage. ENT: No nasal bleeding or discharge. Mucous membranes pink and moist. NECK: Trachea midline. No JVD. CARDIOVASCULAR: Heart rate rapid. No appreciable murmurs. RESPIRATORY: No accessory muscle use. Clear to auscultation. Breath sounds equal bilaterally. GASTROINTESTINAL: Abdomen soft, non-tender, nondistended. Hepatic and splenic margins not palpable. MUSCULOSKELETAL: No obvious deformities. No clubbing. No cyanosis. No edema. NEUROLOGICAL: Awake and alert. No obvious cranial nerve deficits. Motor grossly within normal limits. Normal speech. PSYCHIATRIC: A little bit anxious. Data Data Last Documented VS Vital Signs Date Time Temp Pulse Resp B/P (MAP) Pulse Ox O2 Delivery O2 Flow Rate FiO2 09/13/17 11:00 76 18 115/83 (94) 100 Room Air 09/13/17 08:20 97.6 Orders Orders Electrocardiogram (09/13/17 ) Adenosine Inj (Adenocard Inj) (09/13/17 08:36) Complete Blood Count With Diff (09/13/17 08:38) Comprehensive Metabolic Panel (09/13/17 08:38) Magnesium (Mg) (09/13/17 08:38) Beta Hydroxybutyrate (Acetone) (09/13/17 08:38) Lactic Acid (09/13/17 08:38) Urinalysis - C+S If Indicated (09/13/17 08:38) Chest, Single Ap (09/13/17 08:38) Blood Gas Venous (Vbg) (09/13/17 08:38) Blood Glucose (09/13/17 08:38) Blood Glucose (09/13/17 09:38) Ecg Monitoring (09/13/17 08:38) Iv Access Insert/Monitor (09/13/17 08:38) Oximetry (09/13/17 08:38) NPO (09/13/17 08:38) Sodium Chlor 0.9% 1000 Ml Inj (Ns 1000 M (09/13/17 08:38) Sodium Chlor 0.9% 1000 Ml Inj (Ns 1000 M (09/13/17 09:08) Sodium Chloride 0.9% Flush (Ns Flush) (09/13/17 08:45) Ed Urine Pregnancytest Poc (09/13/17 08:38) Urine Culture (09/13/17 08:56) Insulin Aspart Inj (Novolog Inj) (09/13/17 10:00) Electrocardiogram (09/13/17 08:40) Labs Laboratory Tests Test 09/13/17 08:43 09/13/17 08:56 Blood Gas Puncture Site RN Blood Gas Patient Temperature 98.6 Venous Blood pH 7.38 Venous Blood Partial Pressure CO2 44 mmHg Venous Blood Partial Pressure O2 7 mmHg Venous Blood HCO3 25 mmol/L Venous Blood Oxygen Saturation 5 % Venous Blood Oxygen Content 1.1 Vol % Venous Blood Base Excess 0.4 mmol/L Blood Gas Inspired Oxygen 21 % White Blood Count 7.5 TH/MM3 Red Blood Count 4.45 MIL/MM3 Hemoglobin 14.2 GM/DL Hematocrit 42.4 % Mean Corpuscular Volume 95.4 FL Mean Corpuscular Hemoglobin 32.0 PG Mean Corpuscular Hemoglobin Concent 33.6 % Red Cell Distribution Width 13.3 % Platelet Count 301 TH/MM3 Mean Platelet Volume 8.7 FL Neutrophils (%) (Auto) 65.4 % Lymphocytes (%) (Auto) 27.1 % Monocytes (%) (Auto) 5.9 % Eosinophils (%) (Auto) 0.6 % Basophils (%) (Auto) 1.0 % Neutrophils # (Auto) 4.9 TH/MM3 Lymphocytes # (Auto) 2.0 TH/MM3 Monocytes # (Auto) 0.4 TH/MM3 Eosinophils # (Auto) 0.0 TH/MM3 Basophils # (Auto) 0.1 TH/MM3 CBC Comment DIFF FINAL Differential Comment Urine Color LIGHT-YELLOW Urine Turbidity CLEAR Urine pH 6.0 Urine Specific [place] 1.038 Urine Protein NEG mg/dL Urine Glucose (UA) 1000 mg/dL Urine Ketones 40 mg/dL Urine Occult Blood MOD Urine Nitrite NEG Urine Bilirubin NEG Urine Urobilinogen LESS THAN 2.0 MG/DL Urine Leukocyte Esterase SMALL Urine RBC 1 /hpf Urine WBC 14 /hpf Urine Squamous Epithelial Cells 1 /hpf Urine Bacteria FEW /hpf Microscopic Urinalysis Comment CULTURE INDICATED Blood Urea Nitrogen 12 MG/DL Creatinine 0.87 MG/DL Random Glucose 464 MG/DL Total Protein 8.4 GM/DL Albumin 3.9 GM/DL Calcium Level 9.7 MG/DL Magnesium Level 1.9 MG/DL Alkaline Phosphatase 138 U/L Aspartate Amino Transf (AST/SGOT) 18 U/L Alanine Aminotransferase (ALT/SGPT) 23 U/L Total Bilirubin 0.3 MG/DL Sodium Level 132 MEQ/L Potassium Level 4.0 MEQ/L Chloride Level 96 MEQ/L Carbon Dioxide Level 23.2 MEQ/L Anion Gap 13 MEQ/L Estimat Glomerular Filtration Rate 91 ML/MIN Lactic Acid Level 2.7 mmol/L B-Hydroxybutyrate 1.76 MMOL/L [facility] Medical Decision Making Medical Screen Exam Complete: Yes Emergency Medical Condition: Yes Interpretation(s) My review of EKG: SVT at a rate of 163, normal axis, nonspecific lateral ST depressions inferior laterally. My review of repeat EKG shows normal sinus rhythm at a rate of 83, normal axis, normal intervals, no definite evidence of acute ischemia. LABS: CBC is unremarkable. CMP is unremarkable. Glucose is 464 Lactate 2.7 UA with elevated specific gravity, elevated glucose, some trace pyuria. Beta hydroxybutyrate 1.76. Chest x-ray negative Differential Diagnosis SVT, DKA, hyperglycemia, infection, dehydration, other Narrative Course Medical decision making Is a 31-year-old woman presents to the emergency department complaining of chest pain. She found to be in SVT. She converted with vagal maneuvers only. She has some hyperglycemia also. No evidence of DKA. Given IV fluid hydration , labs were obtained, was given subcu insulin. Will recheck blood sugar, recommend outpatient follow-up. Diagnosis Primary Impression: SVT (supraventricular tachycardia) Additional Impression: Hyperglycemia Additional Instructions: Continue insulin as prescribed. Drink plenty fluids stay well-hydrated. Follow-up with your primary doctor in the next 1-2 days for repeat evaluation. Return to the emergency department for any new or worsening symptoms. Disposition: 01 DISCHARGE HOME Condition: Stable Kumar Rivera MD September 13, 2017 10:14
[2017-09-13 11:00] VITALS: BP 115/83; PULSE 76; RESP 18; O2SAT 100
--- NOTE | 2017-09-13 13:54 | EKG ---
Date Performed: 09/13/2017 Time Performed: 08:40:38 PTAGE: 31 years EKG: Sinus rhythm POSSIBLE RIGHT VENTRICULAR CONDUCTION DELAY BORDERLINE ECG PREVIOUS TRACING : 09/13/2017 08.34 Since prior tracing, rate has slowed with normalization of ST-T wave changes. DOCTOR: Gato Han Interpretating Date/Time 09/16/2017 08:17:39
--- NOTE | 2017-09-13 13:54 | EKG ---
Date Performed: 09/13/2017 Time Performed: 08:34:51 PTAGE: 31 years EKG: SUPRAVENTRICULAR TACHYCARDIA MODERATE ST DEPRESSION ABNORMAL ECG PREVIOUS TRACING : 02/27/2017 15.05 Rate has increased significantly since prior tracing with a ssociated ST-T changes, suggestive of ischemia. DOCTOR: Gato Han Interpretating Date/Time 09/16/2017 08:17:29
== END 2017-09-13 12:30 | disposition home or self-care (01) ==
LOC: NEPC 08:03
DX: I47.1 Supraventricular tachycardia (principal); E10.65 Type 1 diabetes mellitus with hyperglycemia; R06.02 Shortness of breath; R82.71 Bacteriuria; Z79.4 Long term (current) use of insulin
CPT/HCPCS: 71045; 80053; 81001; 82010; 82805; 83605; 83735; 84703; 85025; 87077; 87086; 87186; 93005; 96360; 96361; 96372; 99285; J1815; J7030; J0153